=== PATIENT | female | born 1940 | race Caucasian/White ===

== ENCOUNTER 2020-08-13 11:06 | Inpatient (IN) ==
[2020-08-13] MEDS ORDERED: fentaNYL citrate 100 MCG/2 ML VIAL IV STA ×2 (12:41→15:00)
--- NOTE | 2020-08-13 12:47 | Emergency Department Note ---
Impression & Plan Pubic bone fracture, Elevated INR ED Provider Note Provider: Michael Harkins MD DATE OF SERVICE: 08/13/2020 CHIEF COMPLAINT: Right inguinal hip pain HISTORY OF PRESENT ILLNESS: Patient is a 79-year-old female history of DVT on Coumadin, interstitial lung disease on chronic prednisone, GERD, dextrocardia, and diastolic heart failure presenting today with family reporting over the past 4 days significant worsening of pain in her right hip, upper thigh, and right lower quadrant. States over the past 2 months she been having some intermittent pain of right hip. Was doing okay several weeks ago and was able to do some light gardening watering. States the next day roughly 2 to 3 weeks ago may experience worsening pain over the past 4 days significantly worsened. States she had significant pain in the right thigh around of the hip and into the right lower quadrant. Patient denies any trauma or falls. Patient states is worse with certain movements but is unable to get a position of comfort. Patient states urinary frequency but denies any hematuria. Denies any nausea or vomiting. Patient states been 2 days since her last bowel movement. Denies any saddle anesthesia or pain down her legs. Patient denies any numbness in the lower extremities. Patient states she has some chronic baseline back pain. Patient denies any chest pain at this time or worsening shortness of breath. Patient states he is under good round and lives at home by herself and was brought here by family for further evaluation. Tylenol and heat did not been helping with the pain at home. Patient evidently had an outpatient x-ray reportedly without acute findings they report. REVIEW OF SYSTEMS: A total of 10 review of systems was obtained and negative except as stated above in the HPI. PAST MEDICAL HISTORY: As noted above MEDICATIONS: Reviewed home medication list SOCIAL HISTORY: , lives at home by herself PHYSICAL EXAM: GENERAL: alert and oriented in no acute distress on stretcher Head: normocephalic and atraumatic EYES: No injection, discharge or icterus. NECK: Trachea midline. ENT: Mucous membranes pink and moist. LUNGS: Airway patent. No retractions. Breath sounds clear anteriorly HEART: Regular rate and rhythm. No chest wall tenderness ABDOMEN: Soft and non-tender, without guarding or rebound. SKIN: Acyanotic, warm, dry, without rashes EXTREMITIES: Without swelling, tenderness or deformity however pain with ROM of the right hip and some tenderness in the right inguinal region without significant bruising or erythema appreciated here. NEUROLOGICAL: No focal deficits. No aphasia. No facial droop or slurred speech.Sensation to gross touch normal in lower extremities CONTINUOUS CARDIAC MONITORING: was ordered and showed a heart rate of 50s to 80s bpm in normal sinus rhythm and sinus bradycardia Patient's laboratory studies and imaging reviewed. Differential includes Appendicitis, infections, diverticulitis, UTI, obstruction, mesenteric ischemia, aortic pathology, inflammatory bowel disease, renal colic, PUD, pancreatitis, biliary pathology, hernia, volvulus, constipation, bony injury as well as other pathologies. IMPRESSION/MEDICAL DECISION MAKING: While no significant trauma she is chronically been on steroids and imaging here appears to show a pelvic fracture of the right pubic bone. No significant hematoma noted per radiology report. INR is elevated at 9. She states decreased oral intake and this is likely contributing to the elevation. DVT does not appear to be recent. Given some oral vitamin K as there as has no significant evidence of acute bleeding but to help lower the INR to a therapeutic level. Leukocytosis of unclear etiology likely reactive versus related to some extra steroid she took yesterday. Urine without signs of infection. Other blood work is reassuring. Patient had some improved with fentanyl and was upset with the findings and the need for hospitalization. Daughter updated at bedside and understanding of the situation. She agrees the patient cannot go home at this time. Doubt this will be surgical by any means but patient's pain and this finding with the elevated INR a significant fall con cerns. Believe she will need some rehab and will discuss with the hospitalist for monitoring here overnight and placement. Patient's daughter was agreeable with this. DIAGNOSIS: pubic bone fracture, elevated INR DISPOSITION: Hospitalist will evaluate Family and patient updated at bedside. Past Med/Surg History Medical History (Updated 08/13/20 @ 20:08 by Michael Harkins M.D.) Age-related osteoporosis without current pathological fracture Asthma Benign hypertension with stage 3a chronic kidney disease Cataracts, bilateral Chronic anticoagulation Chronic cough Dextrocardia DVT (deep venous thrombosis) LLE Dyslipidemia Female stress incontinence ROMEO (generalized anxiety disorder) Gastroesophageal reflux disease without esophagitis Glaucoma H/O deep vein thrombophlebitis of lower extremity Hypertension, essential Hypothyroidism Impaired vision in both eyes Interstitial lung disease Migraine with aura and without status migrainosus, not intractable Mild aortic regurgitation Mild mitral regurgitation Moderate aortic stenosis Nonrheumatic aortic (valve) stenosis Osteopenia Primary open angle glaucoma of both eyes, 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 Urine incontinence Vitamin D deficiency Surgical History History of breast lump/mass excision History of surgical procedure on eye proper using laser Hx of cataract surgery Status post total abdominal hysterectomy Family History Mother Heart disease Diabetes Hypertension Father Heart disease Hypertension Brother Diabetes Heart disease Lung cancer Grandmother (Paternal) Heart disease Grandfather (Paternal) Heart disease Aunt Breast cancer Social History Smoking Status: Never smoker Second Hand Exposure: No; Hx Alcohol Use: No Hx Substance Use: No Preferred Language: Mohawk Communication Ability: Effective Visual Impairment: Limited 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 Technologist Required: No Beliefs That Will Affect Care: None marital status: / Current Living Situation: Alone current occupational status: retired Feels Safe at Home: Yes Safety Concerns: Feels Safe At This Time Assistive Devices: Denture - Upper and Glasses Allergies Allergies Allergy/AdvReac Type Severity Reaction Status Date / Time Penicillins Allergy Verified 08/13/20 12:05 prednisone Allergy Verified 08/13/20 12:05 Quinolones Allergy Verified 08/13/20 12:05 Home Meds Home Medications Medication Instructions Recorded Confirmed acetylcysteine 200 mg/mL (20 %) 3 ml INHALATION BID ml 08/05/20 08/13/20 solution albuterol sulfate 2.5 mg INHALATION Q4H PRN 08/05/20 08/13/20 alendronate 70 mg tablet 70 mg PO WK tab 08/05/20 08/13/20 azelastine 137 mcg (0.1 %) nasal 1 spray INTRANASAL BID 08/05/20 08/13/20 spray aerosol brinzolamide 1 %-brimonidine 0.2 % 1 drp OPHTHALMIC (EYE) TID 08/05/20 08/13/20 eye drops,suspension clotrimazole-betamethasone 1 1 applic TOPICAL BID 08/05/20 08/13/20 %-0.05 % topical cream conjugated estrogens 0.625 mg/gram 0.625 mg VAGINAL TID PRN g 08/05/20 08/13/20 vaginal cream etodolac 300 mg capsule 300 mg PO Q8H PRN 08/05/20 08/13/20 fexofenadine 180 mg tablet 180 mg PO DAILY PRN 08/05/20 08/13/20 fluorouracil 5 % topical cream 1 applic TOPICAL BID PRN 08/05/20 08/13/20 fluticasone propionate 220 2 puff INHALATION BID 08/05/20 08/13/20 mcg/actuation HFA aerosol inhaler gabapentin 300 mg capsule 300 mg PO DAILY 08/05/20 08/13/20 hydroxyzine HCl 10 mg tablet 10 mg PO QPM PRN tab 08/05/20 08/13/20 latanoprost 0.005 % eye drops 1 drp OPHTHALMIC (EYE) QPM 08/05/20 08/13/20 levothyroxine 50 mcg tablet 50 mcg PO DAILY 08/05/20 08/13/20 losartan 25 mg tablet 25 mg PO DAILY 08/05/20 08/13/20 montelukast 10 mg tablet 10 mg PO DAILY 08/05/20 08/13/20 omeprazole 40 mg capsule,delayed 40 mg PO DAILY 08/05/20 08/13/20 release polyethylene glycol 3350 17 gram 255 g PO DAILY PRN ea 08/05/20 08/13/20 oral powder packet sennosides 8.6 mg-docusate sodium 1 tab-cap PO QPM tab 08/05/20 08/13/20 50 mg tablet sertraline 25 mg tablet 25 mg PO DAILY 08/05/20 08/13/20 simvastatin 20 mg tablet 20 mg PO QPM 08/05/20 08/13/20 sumatriptan succinate 50 mg tablet 50 mg PO Q2H PRN 08/05/20 08/13/20 timolol 0.5 % eye drops 1 drp OPHTHALMIC (EYE) BID 08/05/20 08/13/20 warfarin 5 mg tablet 5 mg PO PM tab 08/07/20 08/13/20 acetaminophen [Tylenol Extra 100 mg PO Q6H PRN 08/13/20 08/13/20 Strength] Previous Rx's Medication Instructions Recorded diltiazem HCl 180 mg 180 mg PO DAILY #90 cap 06/25/21 capsule,extended release 24 hr Results & Data (ED) Vital Signs Vital Signs - 24 hr 08/13/20 11:12 08/13/20 11:30 08/13/20 12:01 Temperature 37 C Temperature Source Oral Pulse Rate 62 59 L 60 Pulse Rate from SpO2 Sensor 59 L 61 Pulse Rhythm Regular Pulse Strength Normal Respiratory Rate 15 14 18 Respiratory Effort / Characteristics Non-Labored Spontaneous Respiratory Depth Normal Respiratory Pattern Regular Blood Pressure 142/83 H 144/73 H 162/81 H Blood Pressure Mean 102 96 108 Blood Pressure Position Lying Pulse Oximetry 96 94 96 Oxygen Delivery Method Room Air Sepsis Recent Fever Within 48 Hours No Sepsis New/Unexplained Change in Mental Status N/A Sepsis Action Taken by Nursing No Action Required 08/13/20 12:30 08/13/20 13:00 08/13/20 13:30 Temperature Temperature Source Pulse Rate 74 63 60 Pulse Rate from SpO2 Sensor 73 64 59 L Pulse Rhythm Pulse Strength Respiratory Rate 14 15 16 Respiratory Effort / Characteristics Respiratory Depth Respiratory Pattern Blood Pressure 171/85 H 164/76 H 164/80 H Blood Pressure Mean 113 105 108 Blood Pressure Position Pulse Oximetry 98 94 94 Oxygen Delivery Method Sepsis Recent Fever Within 48 Hours Sepsis New/Unexplained Change in Mental Status Sepsis Action Taken by Nursing 08/13/20 14:00 08/13/20 14:30 08/13/20 14:50 Temperature Temperature Source Pulse Rate 56 L 61 58 L Pulse Rate from SpO2 Sensor 60 58 L Pulse Rhythm Pulse Strength Respiratory Rate 17 13 15 Respiratory Effort / Characteristics Respiratory Depth Respiratory Pattern Blood Pressure 163/91 H 164/68 H Blood Pressure Mean 115 100 Blood Pressure Position Pulse Oximetry 91 93 Oxygen Delivery Method Sepsis Recent Fever Within 48 Hours Sepsis New/Unexplained Change in Mental Status Sepsis Action Taken by Nursing 08/13/20 15:00 08/13/20 15:01 08/13/20 15:10 Temperature Temperature Source Pulse Rate 71 72 83 Pulse Rate from SpO2 Sensor 68 73 81 Pulse Rhythm Pulse Strength Respiratory Rate 19 18 17 Respiratory Effort / Characteristics Respiratory Depth Respiratory Pattern Blood Pressure 182/105 H Blood Pressure Mean 130 Blood Pressure Position Pulse Oximetry 97 97 97 Oxygen Delivery Method Sepsis Recent Fever Within 48 Hours Sepsis New/Unexplained Change in Mental Status Sepsis Action Taken by Nursing 08/13/20 15:20 08/13/20 15:30 08/13/20 15:40 Temperature Temperature Source Pulse Rate 72 58 L 65 Pulse Rate from SpO2 Sensor 72 63 64 Pulse Rhythm Pulse Strength Respiratory Rate 14 22 17 Respiratory Effort / Characteristics Respiratory Depth Respiratory Pattern Blood Pressure 182/86 H Blood Pressure Mean 118 Blood Pressure Position Pulse Oximetry 98 95 95 Oxygen Delivery Method Sepsis Recent Fever Within 48 Hours Sepsis New/Unexplained Change in Mental Status Sepsis Action Taken by Nursing 08/13/20 15:50 08/13/20 16:00 08/13/20 16:10 Temperature Temperature Source Pulse Rate 69 61 60 Pulse Rate from SpO2 Sensor 68 62 59 L Pulse Rhythm Pulse Strength Respiratory Rate 13 16 18 Respiratory Effort / Characteristics Respiratory Depth Respiratory Pattern Blood Pressure 154/74 H Blood Pressure Mean 100 Blood Pressure Position Pulse Oximetry 95 93 92 Oxygen Delivery Method Sepsis Recent Fever Within 48 Hours Sepsis New/Unexplained Change in Mental Status Sepsis Action Taken by Nursing 08/13/20 16:20 08/13/20 16:30 Temperature Temperature Source Pulse Rate 56 L 63 Pulse Rate from SpO2 Sensor 56 L 62 Pulse Rhythm Pulse Strength Respiratory Rate 16 16 Respiratory Effort / Characteristics Respiratory Depth Respiratory Pattern Blood Pressure 176/84 H Blood Pressure Mean 114 Blood Pressure Position Pulse Oximetry 95 94 Oxygen Delivery Method Sepsis Recent Fever Within 48 Hours Sepsis New/Unexplained Change in Mental Status Sepsis Action Taken by Nursing Laboratory Data Result diagrams: 08/13/20 12:50 08/13/20 12:50 Lab Results 08/13/20 08/13/20 08/13/20 Range/Units 12:50 12:50 12:50 WBC 15.93 H (4.8-10.8) K/uL RBC 4.35 (4.2-5.4) M/uL Hgb 13.4 (12.0-16.0) g/dL Hct 39.7 (37-47) % MCV 91.3 (80-100) fL MCH 30.8 (25-34) pg MCHC 33.8 (32-36) g/dL RDW Std Deviation 45.4 (36.4-46.3) fL RDW Coeff of Satya 13.6 (11.5-14.5) % Plt Count 574 H (130-400) K/uL MPV 8.6 (7.4-10.4) fL Immature Gran % (Auto) 0.5 % Neut % (Auto) 61.5 % Lymph % (Auto) 24.1 % [place] % (Auto) 13.2 % Eos % (Auto) 0.5 % Baso % (Auto) 0.2 % Neut # (Auto) 9.79 H (1.4-6.5) K/uL Lymph # (Auto) 3.84 H (1.2-3.4) K/uL [place] # (Auto) 2.11 H (0.11-0.59) K/uL Eos # (Auto) 0.08 (0-0.5) K/uL Baso # (Auto) 0.03 (0-0.2) K/uL Immature Gran # (Auto) 0.08 H (0.00-0.02) K/uL PT 76.7 H (9.0-12.0) Seconds INR 9.0 H* (0.9-1.1) APTT 60.1 H* (21.0-31.0) Seconds PTT Ratio 2.3 Sodium 137 (136-145) mmol/L Potassium 3.7 (3.5-5.1) mmol/L Chloride 103 (98-107) mmol/L Carbon Dioxide 29 (21-32) mmol/L Anion Gap 5.0 (3-11) BUN 17 (7-18) mg/dl Creatinine 1.00 (0.6-1.2) mg/dl Est Cr Clr Drug Dosing 39.9 ml/min Est GFR ( Amer) 62.9 ml/min Est GFR (Non-Af Amer) 54.3 ml/min BUN/Creatinine Ratio 17.0 (10-20) Glucose 80 (70-99) mg/dl Calcium 9.6 (8.5-10.1) mg/dl Total Bilirubin 0.5 (0.2-1) mg/dl AST 21 (15-37) U/L ALT 29 (12-78) U/L Alkaline Phosphatase 89 (45-117) U/L C-Reactive Protein (0-0.29) mg/dl Total Protein 7.6 (6.4-8.2) gm/dl Albumin 3.8 (3.4-5.0) gm/dl Globulin 3.8 (2.5-4.0) gm/dl Albumin/Globulin Ratio 1.0 (0.9-2) Lipase 111 (73-393) U/L Urine Color Urine Appearance (Clear) Urine pH (4.5-7.5) Ur Specific [place] (1.000-1.030) Urine Protein (Negative) Urine Glucose (UA) (Negative) Urine Ketones (Negative) Urine Blood (Negative) Urine Nitrite (Negative) Urine Bilirubin (Negative) Urine Urobilinogen (Negative) Ur Leukocyte Esterase (Negative) Urine WBC (Auto) (0-5) /hpf Urine RBC (Auto) (0-4) /hpf U Hyaline Cast (Auto) (0-5) /lpf U Epithel Cells (Auto) (0-5) /lpf Urine Bacteria (Auto) (Negative) 08/13/20 08/13/20 Range/Units 12:50 13:00 WBC (4.8-10.8) K/uL RBC (4.2-5.4) M/uL Hgb (12.0-16.0) g/dL Hct (37-47) % MCV (80-100) fL MCH (25-34) pg MCHC (32-36) g/dL RDW Std Deviation (36.4-46.3) fL RDW Coeff of Satya (11.5-14.5) % Plt Count (130-400) K/uL MPV (7.4-10.4) fL Immature Gran % (Auto) % Neut % (Auto) % Lymph % (Auto) % [place] % (Auto) % Eos % (Auto) % Baso % (Auto) % Neut # (Auto) (1.4-6.5) K/uL Lymph # (Auto) (1.2-3.4) K/uL [place] # (Auto) (0.11-0.59) K/uL Eos # (Auto) (0-0.5) K/uL Baso # (Auto) (0-0.2) K/uL Immature Gran # (Auto) (0.00-0.02) K/uL PT (9.0-12.0) Seconds INR (0.9-1.1) APTT (21.0-31.0) Seconds PTT Ratio Sodium (136-145) mmol/L Potassium (3.5-5.1) mmol/L Chloride (98-107) mmol/L Carbon Dioxide (21-32) mmol/L Anion Gap (3-11) BUN (7-18) mg/dl Creatinine (0.6-1.2) mg/dl Est Cr Clr Drug Dosing ml/min Est GFR ( Amer) ml/min Est GFR (Non-Af Amer) ml/min BUN/Creatinine Ratio (10-20) Glucose (70-99) mg/dl Calcium (8.5-10.1) mg/dl Total Bilirubin (0.2-1) mg/dl AST (15-37) U/L ALT (12-78) U/L Alkaline Phosphatase (45-117) U/L C-Reactive Protein 0.39 H (0-0.29) mg/dl Total Protein (6.4-8.2) gm/dl Albumin (3.4-5.0) gm/dl Globulin (2.5-4.0) gm/dl Albumin/Globulin Ratio (0.9-2) Lipase (73-393) U/L Urine Color Yellow Urine Appearance Clear (Clear) Urine pH 7.5 (4.5-7.5) Ur Specific [place] 1.009 (1.000-1.030) Urine Protein Negative (Negative) Urine Glucose (UA) Negative (Negative) Urine Ketones Negative (Negative) Urine Blood Negative (Negative) Urine Nitrite Negative (Negative) Urine Bilirubin Negative (Negative) Urine Urobilinogen Negative (Negative) Ur Leukocyte Esterase Trace H (Negative) Urine WBC (Auto) 1-5 (0-5) /hpf Urine RBC (Auto) 0-4 (0-4) /hpf U Hyaline Cast (Auto) 1-5 (0-5) /lpf U Epithel Cells (Auto) >30 H (0-5) /lpf Urine Bacteria (Auto) Negative (Negative) Administered Medications Acetylcysteine (Acetylcysteine 20% Inhal Soln 4ml Dispensed By Resp.) 3 ml INH BIDR JODI Stop: 09/12/20 19:44 Last Admin: 08/13/20 19:43 Dose: Not Given Documented by: [id number] Albuterol (Albuterol 0.083% Nebu Soln 3 Ml Vial) 2.5 mg INH Q4H PRN PRN Reason: sob/wheezing Stop: 09/12/20 18:37 Last Admin: 08/13/20 19:29 Dose: 2.5 mg Documented by: [id number] Discontinued Medications Fentanyl Citrate (Fentanyl Citrate 100 Mcg/2 Ml Vial) 25 mcg IV NOW STA Stop: 08/13/20 12:42 Last Admin: 08/13/20 12:56 Dose: 25 mcg Documented by: [id number] Fentanyl Citrate (Fentanyl Citrate 100 Mcg/2 Ml Vial) 25 mcg IV NOW STA Stop: 08/13/20 15:01 Last Admin: 08/13/20 15:29 Dose: 25 mcg Documented by: [id number] Ioversol (Optiray 320 100ml) 93 ml IV ONCE ONE Stop: 08/13/20 14:22 Last Admin: 08/13/20 14:21 Dose: 93 ml Documented by: [id number] Phytonadione (Phytonadione 5 Mg Tab) 5 mg PO NOW STA Stop: 08/13/20 14:56 Last Admin: 08/13/20 15:22 Dose: 5 mg Documented by: [id number] Imaging Data Radiologist's Impression: Abdomen/Pelvis CT 08/13/20 12:40 CT abd pelvis IV con only CLINICAL HISTORY: RLQ/thigh/hip pain COMPARISON STUDY: None. TECHNIQUE: The patient was scanned in a dynamic helical fashion during intravenous administration of 93 cc of Optiray 320 A dose lowering technique was utilized adhering to the principles of ALARA. CT DOSE: 543.81 mGycm FINDINGS: Lower chest: There is dextrocardia. There are basilar atelectatic changes. Liver: There is a left-sided liver consistent with situs inversus. There is a 6 mm hepatic cyst. Gallbladder: Unremarkable. Spleen: Spleen is right-sided. No splenic masses are visualized. Pancreas: Unremarkable. Adrenal glands: Unremarkable. Kidneys: There is symmetric renal cortical enhancement. The kidneys are normal in size without hydronephrosis. Bowel: There are no transition zones indicate bowel obstruction. There is no evidence of acute diverticulitis. There is no evidence of acute appendicitis. Peritoneum: There is no intraperitoneal free air or abdominal ascites. Vasculature: The abdominal aorta is normal in course and caliber. Adenopathy: None. Pelvic viscera: The patient is status post a prior hysterectomy. A tampon is visualized. Skeletal structures: There is a nondisplaced fracture the right symphysis pubis. IMPRESSION: 1. Situs inversus 2. No evidence of bowel obstruction. No evidence of free air 3. No evidence of acute diverticulitis. No evidence of acute appendicitis 4. Vaginal tampon 5. Nondisplaced fracture of the right symphysis pubis ACT 112: Negative or not required by law. Electronically signed by: Olegario Danielson M.D. 08/13/2020 2:[address] 08/13/20 12:40 CT hip RT wo con CLINICAL HISTORY: pain COMPARISON STUDY: No previous studies for comparison. TECHNIQUE: Axial images of the right hip were obtained without IV contrast. Sagittal and coronal reconstructions were viewed. Automated exposure control was utilized for the study. A dose lowering technique was utilized adhering to the principles of ALARA. FINDINGS: Note is made of an acute to subacute nondisplaced fracture of the medial right pubic bone extending to the symphysis pubis. No acute fracture within the right hip is noted. No suspicious osseous lesion is noted. Alignment of the right hip is anatomic. There is no CT evidence for avascular necrosis of the right femoral head. Mild right hip osteoporosis present. Abdomen and pelvis CT will be reported separately. There is no right inguinal lymphadenopathy. IMPRESSION: 1. Acute to subacute nondisplaced fracture of the medial right pubic bone which extends to the symphysis pubis. 2. No acute fracture or dislocation within the right hip. ACT 112: Negative or not required by law. Electronically signed by: Johnny Banerjee M.D. 08/13/2020 2:42 PM Discharge Plan Visit Data Chief Complaint: Hip Pain Stated Complaint: HIP PAIN ED Provider: Michael Harkins Discharge Problem: Pubic bone fracture, Elevated INR Patient Disposition: Admitted As Inpatient Discharge Instructions Interventions: ED Discharge Assessment Last Done: 08/13/20 17:19 Discharge Problem: Pubic bone fracture Qualifiers: Encounter type: initial encounter Sublocation of pubis: other portion of pubis Fracture type: closed Laterality: right Qualified Code(s): S32.591A - Other specified fracture of right pubis, initial encounter for closed fracture
[2020-08-13 13:00] LABS: Basophils # (auto) 0.03 K/uL (0-0.2); Basophils % (auto) 0.2 %; Eosinophils # (auto) 0.08 K/uL (0-0.5); Eosinophils % (auto) 0.5 %; Hematocrit (blood only) 39.7 % (37-47); Hemoglobin 13.4 g/dL (12.0-16.0); Immature Granulocytes # (auto) 0.08 K/uL (0.00-0.02); Immature Granulocytes % (auto) 0.5 %; Lymphocytes # (auto) 3.84 K/uL (1.2-3.4); Lymphocytes % (auto) 24.1 %; Mean Corpuscular Hemoglobin 30.8 pg (25-34); Mean Corpuscular Hgb Conc 33.8 g/dL (32-36); Mean Corpuscular Volume 91.3 fL (80-100); Mean Platelet Volume 8.6 fL (7.4-10.4); Monocytes # (auto) 2.11 K/uL (0.11-0.59); Monocytes % (auto) 13.2 %; Neutrophils # (auto) 9.79 K/uL (1.4-6.5); Neutrophils % (auto) 61.5 %; Platelet Count 574 K/uL (130-400); RDW Coefficient of Variation 13.6 % (11.5-14.5); RDW Standard Deviation 45.4 fL (36.4-46.3); Red Blood Count 4.35 M/uL (4.2-5.4); White Blood Count 15.93 K/uL (4.8-10.8)
[2020-08-13 13:21] LABS: Appearance Urine Clear (Clear); Bacteria Urine Automated Negative (Negative); Bilirubin Urine Negative (Negative); Blood Urine Negative (Negative); Color Urine Yellow; Epithelial Cell Urine Auto >30 /lpf (0-5); Glucose Urine UA Negative (Negative); Ketones Urine Negative (Negative); Leukocyte Esterase Urine Trace (Negative); Nitrite Urine Negative (Negative); Protein Urine Negative (Negative); RBC Urine Automated 0-4 /hpf (0-4); Specific Gravity Urine 1.009 (1.000-1.030); Urobilinogen Urine Negative (Negative); pH Urine 7.5 (4.5-7.5)
[2020-08-13 13:24] LABS: Albumin Level 3.8 gm/dl (3.4-5.0); Calcium 9.6 mg/dl (8.5-10.1); Creatinine Clr Calc Pharmacy 39.9 ml/min; Est GFR (African American) 62.9 ml/min; Est GFR (Non-African American) 54.3 ml/min; Partial Thromboplastin Ratio 2.3; Potassium 3.7 mmol/L (3.5-5.1); Prothrombin Time 76.7 Seconds (9.0-12.0)
[2020-08-13 13:26] LABS: Bilirubin,Total 0.5 mg/dl (0.2-1); Globulin 3.8 gm/dl (2.5-4.0); Total Protein 7.6 gm/dl (6.4-8.2)
[2020-08-13 13:32] LABS: Partial Thromboplastin Time 60.1 Seconds (21.0-31.0)
[2020-08-13] MEDS ORDERED: OPTIRAY 320 100ml IV ONE (14:21)
--- NOTE | 2020-08-13 14:41 | CT Scan Report ---
CT abd pelvis IV con only CLINICAL HISTORY: RLQ/thigh/hip pain COMPARISON STUDY: None. TECHNIQUE: The patient was scanned in a dynamic helical fashion during intravenous administration of 93 cc of Optiray 320 A dose lowering technique was utilized adhering to the principles of ALARA. CT DOSE: 543.81 mGycm FINDINGS: Lower chest: There is dextrocardia. There are basilar atelectatic changes. Liver: There is a left-sided liver consistent with situs inversus. There is a 6 mm hepatic cyst. Gallbladder: Unremarkable. Spleen: Spleen is right-sided. No splenic masses are visualized. Pancreas: Unremarkable. Adrenal glands: Unremarkable. Kidneys: There is symmetric renal cortical enhancement. The kidneys are normal in size without hydron ephrosis. Bowel: There are no transition zones indicate bowel obstruction. There is no evidence of acute divert iculitis. There is no evidence of acute appendicitis. Peritoneum: There is no intraperitoneal free air or abdominal ascites. Vasculature: The abdominal aorta is normal in course and caliber. Adenopathy: None. Pelvic viscera: The patient is status post a prior hysterectomy. A tampon is visualized. Skeletal structures: There is a nondisplaced fracture the right symphysis pubis. IMPRESSION: 1. Situs inversus 2. No evidence of bowel obstruction. No evidence of free air 3. No evidence of acute diverticulitis. No evidence of acute appendicitis 4. Vaginal tampon 5. Nondisplaced fracture of the right symphysis pubis ACT 112: Negative or not required by law. Electronically signed by: Olegario Danielson M.D. 08/13/2020 2:39 PM
--- NOTE | 2020-08-13 14:43 | CT Scan Report ---
CT hip RT wo con CLINICAL HISTORY: pain COMPARISON STUDY: No previous studies for comparison. TECHNIQUE: Axial images of the right hip were obtained without IV contrast. Sagittal and coronal jose antonio nstructions were viewed. Automated exposure control was utilized for the study. A dose lowering tech nique was utilized adhering to the principles of ALARA. FINDINGS: Note is made of an acute to subacute nondisplaced fracture of the medial right pubic bone e xtending to the symphysis pubis. No acute fracture within the right hip is noted. No suspicious osseo us lesion is noted. Alignment of the right hip is anatomic. There is no CT evidence for avascular nec rosis of the right femoral head. Mild right hip osteoporosis present. Abdomen and pelvis CT will be r eported separately. There is no right inguinal lymphadenopathy. IMPRESSION: 1. Acute to subacute nondisplaced fracture of the medial right pubic bone which extends to the symphy sis pubis. 2. No acute fracture or dislocation within the right hip. ACT 112: Negative or not required by law. Electronically signed by: Johnny Banerjee M.D. 08/13/2020 2:42 PM
[2020-08-13] MEDS ORDERED: PHYTONADIONE 5 MG TAB PO STA (14:55)
--- NOTE | 2020-08-13 16:09 | History & Physical Report ---
Date of Service August 13, 2020 Assessment & Plan (1) Pubic bone fracture: Osteoporotic fracture that occurred with minimal exertion while gardening approximately 2 weeks ago but pain much worse in the last 4 days Inability to ambulate at this point secondary to severe pain No hematoma noted on imaging despite INR of 9.0 on admission WBC count elevated as she tried taking 2 tablets of prednisone yesterday for pain, but do not suspect infection -Admit to medical/surgical floor -PT/OT consultations and will likely need rehab placement -Pain control with Tylenol, oxycodone as needed, and IV morphine as needed severe breakthrough pain -Orthopedics consultation requested -Has not been taking her medications for osteoporosis as an outpatient-consider Prolia versus Forteo as an outpatient (2) Chronic anticoagulation: Takes this for history of recurrent DVT INR 9.0 upon admission INR is likely elevated secondary to recent prednisone use as well as very poor p.o. intake over the last 4 days Fortunately, she has no bleeding from anywhere including from her pubic bone fracture -Was given vitamin K 5 mg p.o. x1 in the ER -Reassess INR later this evening and again in the morning -Hold home Coumadin (3) Dextrocardia: Noted Follows with cardiology (4) Dyslipidemia: Continue simvastatin (5) Female stress incontinence: Uses pads and also uses tampons-tampon was noted on CT of the abdomen/pelvis -She was asked to remove this tampon as it has been in since the night prior to admission (6) Gastroesophageal reflux disease without esophagitis: No acute issues Continue PPI (7) Hypertension, essential: Blood pressures are elevated in the ER in the 170s systolic Continue home diltiazem which was recently started by cardiology -She is no longer taking torsemide and this was removed from the home medication list -Continue home losartan (8) Hypothyroidism: Check TSH in the morning Continue home levothyroxine (9) Interstitial lung disease: Follows with [facility] pulmonology in [place] Recently completed a 5-month course of prednisone about 1 month ago but did take an extra dose yesterday for her hip pain Cough is much improved Uses inhalers as needed No hypoxia Continue Singulair, acetylcysteine twice daily, azelastine nasal spray, fexofenadine as needed And inhaled fluticasone (10) Moderate aortic stenosis: Follows with cardiology (11) Vitamin D deficiency: Has not been taking her vitamin D for the last several months Continue upon discharge (12) Urge incontinence: As above Uses pads and tampons for urinary incontinence-asked her to remove her tampon that is currently in place Hold home vaginal estrogen cream while inpatient (13) ROMEO (generalized anxiety disorder): No acute issues Continue home sertraline, hydroxyzine as needed (14) Benign hypertension with stage 3a chronic kidney disease: Renal function stable -Avoid nephrotoxins -renally dose meds when appropriate -follow BMP (15) Osteopenia: Has not been taking home Fosamax or vitamin D as above Consider Prolia or Forteo as an outpatient given fracture (16) DVT prophylaxis: INR is 9.0, takes Coumadin Holding Coumadin as above Disposition-admit to medical/surgical floor PT/OT consults Case management will need to assist with rehab placement most likely Full code Patient reports her daughter 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 History of Present Illness Chief Complaint: Right hip pain Primary Care Provider: Evita Medina, This patient is a 79-year-old female with a history of suspected interstitial lung disease with cough variant asthma and simple chronic bronchitis recently on 4 to 5 months of prednisone therapy, osteoporosis, recurrent DVT on Coumadin, HTN, CKD stage III, dextrocardia, situs inversus abdominalis, generalized anxiety disorder, GERD, migraine headaches, moderate aortic valve stenosis, mild aortic insufficiency, mild mitral regurgitation, heart failure with preserved ejection fraction, bladder incontinence, and hyperlipidemia who presents to the ER with 4 days of significant worsening of pain in the right hip that is been ongoing for approximately 2 to 3 weeks. Pain is also in the upper thigh and right lower quadrant of the abdomen. She reports that several weeks ago she was doing some light gardening while carrying a water bucket and by the next day started experiencing pain in this area which was mild until it worsened the last 4 days. She denies any trauma or falls. Denies any saddle anesthesia or pain down her legs, no numbness in the lower extremities or weakness. She does have worsening of pain with certain movements of the right lower extremity. Tylenol and heat have not been helping with the pain. She had an outpatient x-ray of the right hip which was reportedly normal last week. She reports the pain was so bad that she was unable to get out of bed all last night and finally called her children for help this morning. She was brought in by EMS. In the ER, she was found to have a right medial pubic bone acute to subacute nondisplaced fracture which extends to the pubic symphysis. No fracture or dislocation right hip. She was also noted to have an INR of 9.0. A tampon was also noted in the vagina on CT imaging. She was given p.o. vitamin K 5 mg x 1 in the ER, as well as 2 doses of IV fentanyl. She will be admitted for pelvic fracture for pain control, evaluation for rehab placement, as well as treatment of her supratherapeutic INR. Allergies Allergy/AdvReac Type Severity Reaction Status Date / Time Penicillins Allergy Verified 08/13/20 12:05 prednisone Allergy Verified 08/13/20 12:05 Quinolones Allergy Verified 08/13/20 12:05 Home Medications Medication Instructions Recorded Confirmed Type acetylcysteine 200 mg/mL (20 %) 3 ml INHALATION BID ml 08/05/20 08/13/20 History solution albuterol sulfate 2.5 mg INHALATION Q4H PRN 08/05/20 08/13/20 History alendronate 70 mg tablet 70 mg PO WK tab 08/05/20 08/13/20 History azelastine 137 mcg (0.1 %) nasal 1 spray INTRANASAL BID 08/05/20 08/13/20 History spray aerosol brinzolamide 1 %-brimonidine 0.2 % 1 drp OPHTHALMIC (EYE) TID 08/05/20 08/13/20 History eye drops,suspension clotrimazole-betamethasone 1 1 applic TOPICAL BID 08/05/20 08/13/20 History %-0.05 % topical cream conjugated estrogens 0.625 mg/gram 0.625 mg VAGINAL TID PRN g 08/05/20 08/13/20 History vaginal cream etodolac 300 mg capsule 300 mg PO Q8H PRN 08/05/20 08/13/20 History fexofenadine 180 mg tablet 180 mg PO DAILY PRN 08/05/20 08/13/20 History fluorouracil 5 % topical cream 1 applic TOPICAL BID PRN 08/05/20 08/13/20 History fluticasone propionate 220 2 puff INHALATION BID 08/05/20 08/13/20 History mcg/actuation HFA aerosol inhaler gabapentin 300 mg capsule 300 mg PO DAILY 08/05/20 08/13/20 History hydroxyzine HCl 10 mg tablet 10 mg PO QPM PRN tab 08/05/20 08/13/20 History latanoprost 0.005 % eye drops 1 drp OPHTHALMIC (EYE) QPM 08/05/20 08/13/20 History levothyroxine 50 mcg tablet 50 mcg PO DAILY 08/05/20 08/13/20 History losartan 25 mg tablet 25 mg PO DAILY 08/05/20 08/13/20 History montelukast 10 mg tablet 10 mg PO DAILY 08/05/20 08/13/20 History omeprazole 40 mg capsule,delayed 40 mg PO DAILY 08/05/20 08/13/20 History release polyethylene glycol 3350 17 gram 255 g PO DAILY PRN ea 08/05/20 08/13/20 History oral powder packet sennosides 8.6 mg-docusate sodium 1 tab-cap PO QPM tab 08/05/20 08/13/20 History 50 mg tablet sertraline 25 mg tablet 25 mg PO DAILY 08/05/20 08/13/20 History simvastatin 20 mg tablet 20 mg PO QPM 08/05/20 08/13/20 History sumatriptan succinate 50 mg tablet 50 mg PO Q2H PRN 08/05/20 08/13/20 History timolol 0.5 % eye drops 1 drp OPHTHALMIC (EYE) BID 08/05/20 08/13/20 History diltiazem HCl 180 mg 180 mg PO DAILY #90 cap 08/07/20 08/13/20 Rx capsule,extended release 24 hr warfarin 5 mg tablet 5 mg PO PM tab 08/07/20 08/13/20 History acetaminophen [Tylenol Extra 100 mg PO Q6H PRN 08/13/20 08/13/20 History Strength] Past Med/Surg History Medical History (Updated 08/13/20 @ 17:16 by Corrine Oliva MD) Age-related osteoporosis without current pathological fracture Asthma Benign hypertension with stage 3a chronic kidney disease Cataracts, bilateral Chronic anticoagulation Chronic cough Dextrocardia DVT (deep venous thrombosis) LLE Dyslipidemia Female stress incontinence ROMEO (generalized anxiety disorder) Gastroesophageal reflux disease without esophagitis Glaucoma H/O deep vein thrombophlebitis of lower extremity Hypertension, essential Hypothyroidism Impaired vision in both eyes Interstitial lung disease Migraine with aura and without status migrainosus, not intractable Mild aortic regurgitation Mild mitral regurgitation Moderate aortic stenosis Nonrheumatic aortic (valve) stenosis Osteopenia Primary open angle glaucoma of both eyes, 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 Urine incontinence Vitamin D deficiency Surgical History History of breast lump/mass excision History of surgical procedure on eye proper using laser Hx of cataract surgery Status post total abdominal hysterectomy Family History Mother Heart disease Diabetes Hypertension Father Heart disease Hypertension Brother Diabetes Heart disease Lung cancer Grandmother (Paternal) Heart disease Grandfather (Paternal) Heart disease Aunt Breast cancer Social History Smoking Status: Never smoker Hx Alcohol Use: No Preferred Language: Nepali Communication Ability: Effective 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 No chest pain or abdominal pain, no nausea or vomiting. She has had very poor appetite the last few days due to the pain. No bowel movement in 2 days Denies any hematochezia or hematemesis, no bright red blood per rectum or melena, no vaginal bleeding or hematuria. She does report urinary incontinence for which she uses pads as well as daily tampons. Physical Exam Constitutional: WD/WN, vitals as above Eyes: PERRL, conjunctivae normal, anicteric sclerae ENMT: external ear and nose normal, oropharynx normal Neck: trachea midline, no thyromegaly Respiratory: normal respiratory effort Auscultation: + wheezes (Very faint upper respiratory tract expiratory wheezes); no rales and no rhonchi Cardiovascular: Rate/Rhythm: regular rate and regular rhythm Heart Sounds: + murmur (3/6 systolic murmur at the left upper sternal border) Extremities: no calf tenderness and no edema Heart sounds on the right side of the chest Chest (Breasts): Chest: normal inspection of chest Gastrointestinal (Abdomen): normal bowel sounds, soft, nontender, no hepatosplenomegaly Musculoskeletal: Extremities: extremities normal to inspection; no cyanosis a nd no clubbing Positive pain with active range of motion of the right hip and with logroll of the right lower extremity Sensation intact to bilateral lower extremities, motor intact throughout bilateral lower extremities but diminished with hip flexion due to pain Skin: no rashes, warm and dry Neurologic: moves all extremities and awake; no focal motor deficits Psychiatric: A+Ox3, euthymic affect Lymphatic: no lymphedema Results & Data Results & Data ([facility]) Vital Signs (Past 12 Hours) Vital Signs Temp Pulse Resp BP Pulse Ox 08/13/20 14:30 61 13 164/68 H 91 08/13/20 14:00 56 L 17 163/91 H 08/13/20 13:30 60 16 164/80 H 94 08/13/20 13:00 63 15 164/76 H 94 08/13/20 12:30 74 14 171/85 H 98 08/13/20 12:01 60 18 162/81 H 96 08/13/20 11:30 59 L 14 144/73 H 94 08/13/20 11:12 37 C 62 15 142/83 H 96 Laboratory Results 08/13/20 08/13/20 08/13/20 Range/Units Unknown Unknown 13:00 WBC (4.8-10.8) K/uL RBC (4.2-5.4) M/uL Hgb (12.0-16.0) g/dL Hct (37-47) % MCV (80-100) fL MCH (25-34) pg MCHC (32-36) g/dL RDW Std Deviation (36.4-46.3) fL RDW Coeff of Satya (11.5-14.5) % Plt Count (130-400) K/uL MPV (7.4-10.4) fL Immature Gran % (Auto) % Neut % (Auto) % Lymph % (Auto) % Maverick % (Auto) % Eos % (Auto) % Baso % (Auto) % Neut # (Auto) (1.4-6.5) K/uL Lymph # (Auto) (1.2-3.4) K/uL Ma[place]ick # (Auto) (0.11-0.59) K/uL Eos # (Auto) (0-0.5) K/uL Baso # (Auto) (0-0.2) K/uL Immature Gran # (Auto) (0.00-0.02) K/uL PT (9.0-12.0) Seconds INR (0.9-1.1) APTT (21.0-31.0) Seconds PTT Ratio Sodium (136-145) mmol/L Potassium (3.5-5.1) mmol/L Chloride (98-107) mmol/L Carbon Dioxide (21-32) mmol/L Anion Gap (3-11) BUN (7-18) mg/dl Creatinine (0.6-1.2) mg/dl Est Cr Clr Drug Dosing ml/min Est GFR ( Amer) ml/min Est GFR (Non-Af Amer) ml/min BUN/Creatinine Ratio (10-20) Glucose (70-99) mg/dl Calcium (8.5-10.1) mg/dl Total Bilirubin (0.2-1) mg/dl AST (15-37) U/L ALT (12-78) U/L Alkaline Phosphatase (45-117) U/L C-Reactive Protein (0-0.29) mg/dl Total Protein (6.4-8.2) gm/dl Albumin (3.4-5.0) gm/dl Globulin (2.5-4.0) gm/dl Albumin/Globulin Ratio (0.9-2) Lipase (73-393) U/L Urine Color Yellow Urine Appearance Clear (Clear) Urine pH 7.5 (4.5-7.5) Ur Specific [place] 1.009 (1.000-1.030) Urine Protein Negative (Negative) Urine Glucose (UA) Negative (Negative) Urine Ketones Negative (Negative) Urine Blood Negative (Negative) Urine Nitrite Negative (Negative) Urine Bilirubin Negative (Negative) Urine Urobilinogen Negative (Negative) Ur Leukocyte Esterase Trace H (Negative) Urine WBC (Auto) 1-5 (0-5) /hpf Urine RBC (Auto) 0-4 (0-4) /hpf U Hyaline Cast (Auto) 1-5 (0-5) /lpf U Epithel Cells (Auto) >30 H (0-5) /lpf Urine Bacteria (Auto) Negative (Negative) COVID-19 Eval Order Covid19 at [facility] SARS-CoV-2 (PCR) NEGATIVE (Negative) 08/13/20 08/13/20 08/13/20 Range/Units 12:50 12:50 12:50 WBC (4.8-10.8) K/uL RBC (4.2-5.4) M/uL Hgb (12.0-16.0) g/dL Hct (37-47) % MCV (80-100) fL MCH (25-34) pg MCHC (32-36) g/dL RDW Std Deviation (36.4-46.3) fL RDW Coeff of Satya (11.5-14.5) % Plt Count (130-400) K/uL MPV (7.4-10.4) fL Immature Gran % (Auto) % Neut % (Auto) % Lymph % (Auto) % Maverick % (Auto) % Eos % (Auto) % Baso % (Auto) % Neut # (Auto) (1.4-6.5) K/uL Lymph # (Auto) (1.2-3.4) K/uL [place]ick # (Auto) (0.11-0.59) K/uL Eos # (Auto) (0-0.5) K/uL Baso # (Auto) (0-0.2) K/uL Immature Gran # (Auto) (0.00-0.02) K/uL PT 76.7 H (9.0-12.0) Seconds INR 9.0 H* (0.9-1.1) APTT 60.1 H* (21.0-31.0) Seconds PTT Ratio 2.3 Sodium 137 (136-145) mmol/L Potassium 3.7 (3.5-5.1) mmol/L Chloride 103 (98-107) mmol/L Carbon Dioxide 29 (21-32) mmol/L Anion Gap 5.0 (3-11) BUN 17 (7-18) mg/dl Creatinine 1.00 (0.6-1.2) mg/dl Est Cr Clr Drug Dosing 39.9 ml/min Est GFR ( Amer) 62.9 ml/min Est GFR (Non-Af Amer) 54.3 ml/min BUN/Creatinine Ratio 17.0 (10-20) Glucose 80 (70-99) mg/dl Calcium 9.6 (8.5-10.1) mg/dl Total Bilirubin 0.5 (0.2-1) mg/dl AST 21 (15-37) U/L ALT 29 (12-78) U/L Alkaline Phosphatase 89 (45-117) U/L C-Reactive Protein 0.39 H (0-0.29) mg/dl Total Protein 7.6 (6.4-8.2) gm/dl Albumin 3.8 (3.4-5.0) gm/dl Globulin 3.8 (2.5-4.0) gm/dl Albumin/Globulin Ratio 1.0 (0.9-2) Lipase 111 (73-393) U/L Urine Color Urine Appearance (Clear) Urine pH (4.5-7.5) Ur Specific [place] (1.000-1.030) Urine Protein (Negative) Urine Glucose (UA) (Negative) Urine Ketones (Negative) Urine Blood (Negative) Urine Nitrite (Negative) Urine Bilirubin (Negative) Urine Urobilinogen (Negative) Ur Leukocyte Esterase (Negative) Urine WBC (Auto) (0-5) /hpf Urine RBC (Auto) (0-4) /hpf U Hyaline Cast (Auto) (0-5) /lpf U Epithel Cells (Auto) (0-5) /lpf Urine Bacteria (Auto) (Negative) COVID-19 Eval Order SARS-CoV-2 (PCR) (Negative) 08/13/20 Range/Units 12:50 WBC 15.93 H (4.8-10.8) K/uL RBC 4.35 (4.2-5.4) M/uL Hgb 13.4 (12.0-16.0) g/dL Hct 39.7 (37-47) % MCV 91.3 (80-100) fL MCH 30.8 (25-34) pg MCHC 33.8 (32-36) g/dL RDW Std Deviation 45.4 (36.4-46.3) fL RDW Coeff of Satya 13.6 (11.5-14.5) % Plt Count 574 H (130-400) K/uL MPV 8.6 (7.4-10.4) fL Immature Gran % (Auto) 0.5 % Neut % (Auto) 61.5 % Lymph % (Auto) 24.1 % Maverick % (Auto) 13.2 % Eos % (Auto) 0.5 % Baso % (Auto) 0.2 % Neut # (Auto) 9.79 H (1.4-6.5) K/uL Lymph # (Auto) 3.84 H (1.2-3.4) K/uL [place] # (Auto) 2.11 H (0.11-0.59) K/uL Eos # (Auto) 0.08 (0-0.5) K/uL Baso # (Auto) 0.03 (0-0.2) K/uL Immature Gran # (Auto) 0.08 H (0.00-0.02) K/uL PT (9.0-12.0) Seconds INR (0.9-1.1) APTT (21.0-31.0) Seconds PTT Ratio Sodium (136-145) mmol/L Potassium (3.5-5.1) mmol/L Chloride (98-107) mmol/L Carbon Dioxide (21-32) mmol/L Anion Gap (3-11) BUN (7-18) mg/dl Creatinine (0.6-1.2) mg/dl Est Cr Clr Drug Dosing ml/min Est GFR ( Amer) ml/min Est GFR (Non-Af Amer) ml/min BUN/Creatinine Ratio (10-20) Glucose (70-99) mg/dl Calcium (8.5-10.1) mg/dl Total Bilirubin (0.2-1) mg/dl AST (15-37) U/L ALT (12-78) U/L Alkaline Phosphatase (45-117) U/L C-Reactive Protein (0-0.29) mg/dl Total Protein (6.4-8.2) gm/dl Albumin (3.4-5.0) gm/dl Globulin (2.5-4.0) gm/dl Albumin/Globulin Ratio (0.9-2) Lipase (73-393) U/L Urine Color Urine Appearance (Clear) Urine pH (4.5-7.5) Ur Specific [place] (1.000-1.030) Urine Protein (Negative) Urine Glucose (UA) (Negative) Urine Ketones (Negative) Urine Blood (Negative) Urine Nitrite (Negative) Urine Bilirubin (Negative) Urine Urobilinogen (Negative) Ur Leukocyte Esterase (Negative) Urine WBC (Auto) (0-5) /hpf Urine RBC (Auto) (0-4) /hpf U Hyaline Cast (Auto) (0-5) /lpf U Epithel Cells (Auto) (0-5) /lpf Urine Bacteria (Auto) (Negative) COVID-19 Eval Order SARS-CoV-2 (PCR) (Negative) Diagnostic Findings Abdomen/Pelvis CT 08/13/20 12:40 CT abd pelvis IV con only CLINICAL HISTORY: RLQ/thigh/hip pain COMPARISON STUDY: None. TECHNIQUE: The patient was scanned in a dynamic helical fashion during intravenous administration of 93 cc of Optiray 320 A dose lowering technique was utilized adhering to the principles of ALARA. CT DOSE: 543.81 mGycm FINDINGS: Lower chest: There is dextrocardia. There are basilar atelectatic changes. Liver: There is a left-sided liver consistent with situs inversus. There is a 6 mm hepatic cyst. Gallbladder: Unremarkable. Spleen: Spleen is right-sided. No splenic masses are visualized. Pancreas: Unremarkable. Adrenal glands: Unremarkable. Kidneys: There is symmetric renal cortical enhancement. The kidneys are normal in size without hydronephrosis. Bowel: There are no transition zones indicate bowel obstruction. There is no evidence of acute diverticulitis. There is no evidence of acute appendicitis. Peritoneum: There is no intraperitoneal free air or abdominal ascites. Vasculature: The abdominal aorta is normal in course and caliber. Adenopathy: None. Pelvic viscera: The patient is status post a prior hysterectomy. A tampon is visualized. Skeletal structures: There is a nondisplaced fracture the right symphysis pubis. IMPRESSION: 1. Situs inversus 2. No evidence of bowel obstruction. No evidence of free air 3. No evidence of acute diverticulitis. No evidence of acute appendicitis 4. Vaginal tampon 5. Nondisplaced fracture of the right symphysis pubis ACT 112: Negative or not required by law. Electronically signed by: Olegario Danielson M.D. 08/13/2020 2:[address] 08/13/20 12:40 CT hip RT wo con CLINICAL HISTORY: pain COMPARISON STUDY: No previous studies for comparison. TECHNIQUE: Axial images of the right hip were obtained without IV contrast. Sagittal and coronal reconstructions were viewed. Automated exposure control was utilized for the study. A dose lowering technique was utilized adhering to the principles of ALARA. FINDINGS: Note is made of an acute to subacute nondisplaced fracture of the medial right pubic bone extending to the symphysis pubis. No acute fracture within the right hip is noted. No suspicious osseous lesion is noted. Alignment of the right hip is anatomic. There is no CT evidence for avascular necrosis of the right femoral head. Mild right hip osteoporosis present. Abdomen and pelvis CT will be reported separately. There is no right inguinal lymphadenopathy. IMPRESSION: 1. Acute to subacute nondisplaced fracture of the medial right pubic bone which extends to the symphysis pubis. 2. No acute fracture or dislocation within the right hip. ACT 112: Negative or not required by law. Electronically signed by: Johnny Banerjee M.D. 08/13/2020 2:42 PM Code Status & VTE Plan Code Status Full code, but does not want prolonged life support if in a vegetative state VTE Prophylaxis Plan VTE Prophylaxis will be ordered: Yes PG Care Time/CCT Total # of Minutes Spent Total Time Spent with Patient: Total time spent is greater than 50% in coordination of care (as documented) at patient's floor/unit and/or counseling patient: Coding Level of Care Code 04422 Initial Inpt Care Lvl 3 Diagnoses Pubic bone fracture S32.509A Chronic anticoagulation Z79.01 Dextrocardia Q24.0 Dyslipidemia E78.5 Female stress incontinence N39.3 Gastroesophageal reflux disease without esophagitis K21.9 Hypertension, essential I10 Hypothyroidism E03.9 Interstitial lung disease J84.9 Moderate aortic stenosis I35.0 Vitamin D deficiency E55.9 Urge incontinence N39.41 ROMEO (generalized anxiety disorder) F41.1 Benign hypertension with stage 3a chronic kidney disease I12.9; N18.31 Osteopenia M85.80 DVT prophylaxis Z29.9
[2020-08-13] MEDS ORDERED: MAGNESIUM HYDROXIDE SUSP 30 ML UDC PO PRN (18:38)
[2020-08-13] MEDS ORDERED: POLYETHYLENE (MIRALAX) 17 GM PACK PO PRN (18:38)
[2020-08-13] MEDS ORDERED: FEXOFENADINE HCL 180 MG TAB PO PRN (18:38)
[2020-08-13] MEDS ORDERED: MoRPHine SULFATE 2 MG/ML CARP IV PRN (18:38)
[2020-08-13] MEDS ORDERED: ALBUTEROL 0.083% NEBU SOLN 3 ML VIAL INH PRN (18:38)
[2020-08-13] MEDS ORDERED: ONDANSETRON INJ 2 MG/ML 2 ML VIAL IV PRN (18:38)
[2020-08-13] MEDS ORDERED: Nursing to Pharmacy Communication SCH (19:30)
[2020-08-13] MEDS: ACETYLCYSTEINE 20% INHAL SOLN 4ML ***DISPENSED BY RESP. INH SCH (19:43)
[2020-08-13] MEDS ORDERED: ACETYLCYSTEINE 20% INHAL SOLN 30ML INH SCH (20:00)
[2020-08-13] MEDS ORDERED: hydrALAZINE HCL 20 MG/ML VIAL IV ONE (20:02)
[2020-08-13 20:19] LABS: INR 6.5 (0.9-1.1)
[2020-08-13] MEDS: LOSARTAN POTASSIUM 25 MG TAB PO SCH (20:43)
[2020-08-13] MEDS: DOCUSATE SODIUM/SENNA 50/8.6MG TAB PO SCH (20:44)
[2020-08-13] MEDS: LATANOPROST 0.005% OP SOLN 2.5 ML BTL OP SCH (20:44)
[2020-08-13] MEDS: SIMVASTATIN 20 MG TAB PO SCH (20:45)
[2020-08-13] MEDS: TIMOLOL MALEATE 0.5% OP SOLN 5 ML BTL OP SCH ×2 (20:45→20:53)
[2020-08-13] MEDS: SUMAtriptan succinate 50 MG TAB PO PRN (21:44)
[2020-08-13] MEDS: BRINZOLAMIDE/BRIMONIDINE TART 119 DROPS/8 ML BTL OP SCH (21:56)
[2020-08-14] MEDS: oxyCODONE HCL IR 5 MG TAB (IMMEDIATE RELEASE) PO PRN ×3 (00:19→12:42)
[2020-08-14] MEDS: SUMAtriptan succinate 50 MG TAB PO PRN ×3 (04:36→22:08)
[2020-08-14] MEDS ORDERED: LEVOTHYROXINE SODIUM 50 MCG TABLET PO SCH (06:30)
[2020-08-14] MEDS: ACETYLCYSTEINE 20% INHAL SOLN 4ML ***DISPENSED BY RESP. INH SCH (07:06)
--- NOTE | 2020-08-14 07:58 | Hospitalist Progress Note ---
Date of Service August 14, 2020 Assessment & Plan (1) Pubic bone fracture: Osteoporotic fracture that occurred with minimal exertion while gardening approximately 2 weeks ago but pain much worse in the last 4 days Inability to ambulate at this point secondary to severe pain No hematoma noted on imaging despite INR of 9.0 on admission WBC count elevated but she did try prednisone x 2 tablets (previously had for her hx ILD) but trending down without abx, no fever Given 5mg Vit K for INR 9.0 with repeat 6.5 last evening and actually dropped to 1.3 today Orthopedics on consult -- non-operative, WBAT, rehab planned for discharge --> Can consider setting up follow up with Adry DAVIS for further treatment of her osteoporosis with Prolia vs Forteo...vs follow up with her PCP as she has not been taking her Vitamin D supplementation Pain control : Tylenol, Oxycodone as needed. Morphine IV for breakthrough -- currently controlled PT/OT evals -- recs for inpatient rehab. CM following and will discuss with patient about [facility]/referral Continue to monitor (2) Chronic anticoagulation: Takes this for history of recurrent DVT INR 9.0 upon admission and reversed with 5mg Vit K with repeat 6.5 as above Subtherapeutic on AM labs at 1.3 and started lovenox SQ No bleeding from anywhere or pubic bone fx thankfully INR in AM (3) Dextrocardia: Noted Follows with cardiology (4) Dyslipidemia: Continue simvastatin (5) Female stress incontinence: Uses pads and also uses tampons-tampon was noted on CT of the abdomen/pelvis -She was asked to remove this tampon as it has been in since the night prior to admission --> this was removed per patient and she is reliable historian (6) Gastroesophageal reflux disease without esophagitis: No acute issues Continue PPI (7) Hypertension, essential: Blood pressures are elevated in the ER in the 170s systolic Continue home diltiazem which was recently started by cardiology She is no longer taking torsemide and this was removed from the home medication list Continue home losartan BP controlled 139/79 Continue to monitor (8) Hypothyroidism: Check TSH in the morning --> elevated at 11 with normal FT4 0.95 Increasing her home levothyroxine from 50mcg daily to 75mcg daily and rec patient have repeat TFT in 4-6 weeks as outpatient Should help with her constipation as well (9) Interstitial lung disease: Follows with [facility] pulmonology in [place] Recently completed a 5-month course of prednisone about 1 month ago but did take an extra dose day 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 for her hip pain Cough is much improved -- none reported today Uses inhalers as needed No hypoxia Continue Singulair, acetylcysteine twice daily, azelastine nasal spray, fexofenadine as needed And inhaled fluticasone (10) Moderate aortic stenosis: Follows with cardiology (11) Vitamin D deficiency: Has not been taking her vitamin D for the last several months Encouraged adherence and continue upon discharge (12) Urge incontinence: As above Uses pads and tampons for urinary incontinence-asked her to remove her tampon that is currently in place which she reports has been done Hold home vaginal estrogen cream while inpatient (13) ROMEO (generalized anxiety disorder): No acute issues Continue home sertraline, hydroxyzine as needed (14) Benign hypertension with stage 3a chronic kidney disease: Renal function stable -Avoid nephrotoxins -renally dose meds when appropriate -follow BMP (15) Osteopenia: Has not been taking home Fosamax or vitamin D as above Consider Prolia or Forteo as an outpatient given fracture (16) DVT prophylaxis: INR is 9.0, takes Coumadin --> vit K reversal as above Lovenox started today, monitor INR in AM Dispo: continued inpatient stay PT/OT recs rehab --> CM following Patient reports her daughter So would be her healthcare power of divorce attorney Admission and Anticipated Discharge Date Admission Date: August 13, 2020 Subjective Patient evaluated this morning. Stated terrible migraine -- she has a history and these are similar back up her neck and to the front of her eyes. She did get a dose of her sumatriptan x 2 but will order dose of Compazine as she could be having rebound from pain medication as well as lidocaine patch to her neck as she typically uses Biofreeze. No f/c/cp/sob/abd pain/n or v. She did take out her tampon as used for incontinence. Seen by PA and non-operative WBAT and will have evals by PT/OT. Eval this afternoon with improvement of headache with the Compazine and lidocaine patch but she states she feels like she needs to get some rest and that will also help as she has not had much sleep in the past three days. Got up fairly easy with therapy but states continued discomfort to anterior R groin but less than days past. Boosted up in bed with aide as she was slumped down and also causing more discomfort which was improved with repositioning. Her son brought in biofreeze and a pillow that she uses to help with this as well. Questions/concerns addressed. Plans for rehab at discharge when bed available. Review of Systems Review of Systems: All systems reviewed & are unremarkable except as noted in HPI & below Physical Exam Constitutional: WD/WN, vitals as above Eyes: PERRL, conjunctivae normal, anicteric sclerae ENMT: external ear and nose normal, oropharynx normal Neck: trachea midline, no thyromegaly Respiratory: normal respiratory effort Auscultation: + wheezes (Very faint upper respiratory tract expiratory wheezes); no rales and no rhonchi Cardiovascular: Rate/Rhythm: regular rate and regular rhythm Heart Sounds: + murmur (3/6 systolic murmur at the left upper sternal border) Extremities: no calf tenderness and no edema Chest (Breasts): Chest: normal inspection of chest Gastrointestinal (Abdomen): normal bowel sounds, soft, nontender, no hepatosplenomegaly Musculoskeletal: Extremities: extremities normal to inspection; no cyanosis and no clubbing + pain with active ROM of RIGHT hip and with log roll of RLE, NVI decreased hip flexion due to increased pain in R hip strength 3/5 with flexion of the hip compared to 4/5 to LLE pulses palpable bilaterally calves non-tender to palpation Skin: no rashes, warm and dry Neurologic: moves all extremities and awake; no focal motor deficits Psychiatric: Orientation: alert and oriented x 3 Lymphatic: no lymphedema Results & Data Results & Data ([facility]) Vital Signs (Past 12 Hours) Vital Signs Temp Pulse Resp BP Pulse Ox Pulse Ox 08/14/20 07:22 36.7 C 68 16 155/81 H 92 08/13/20 23:14 36.7 C 60 16 124/72 93 08/13/20 20:37 156/105 H 08/13/20 20:10 97 Laboratory Results 08/13/20 08/13/20 08/13/20 Range/Units Unknown Unknown 19:18 WBC (4.8-10.8) K/uL RBC (4.2-5.4) M/uL Hgb (12.0-16.0) g/dL Hct (37-47) % MCV (80-100) fL MCH (25-34) pg MCHC (32-36) g/dL RDW Std Deviation (36.4-46.3) fL RDW Coeff of Satya (11.5-14.5) % Plt Count (130-400) K/uL MPV (7.4-10.4) fL Immature Gran % (Auto) % Neut % (Auto) % Lymph % (Auto) % [place] % (Auto) % Eos % (Auto) % Baso % (Auto) % Neut # (Auto) (1.4-6.5) K/uL Lymph # (Auto) (1.2-3.4) K/uL [place] # (Auto) (0.11-0.59) K/uL Eos # (Auto) (0-0.5) K/uL Baso # (Auto) (0-0.2) K/uL Immature Gran # (Auto) (0.00-0.02) K/uL PT 57.0 H (9.0-12.0) Seconds INR 6.5 H* (0.9-1.1) APTT (21.0-31.0) Seconds PTT Ratio Sodium (136-145) mmol/L Potassium (3.5-5.1) mmol/L Chloride (98-107) mmol/L Carbon Dioxide (21-32) mmol/L Anion Gap (3-11) BUN (7-18) mg/dl Creatinine (0.6-1.2) mg/dl Est Cr Clr Drug Dosing ml/min Est GFR ( Amer) ml/min Est GFR (Non-Af Amer) ml/min BUN/Creatinine Ratio (10-20) Glucose (70-99) mg/dl Calcium (8.5-10.1) mg/dl Total Bilirubin (0.2-1) mg/dl AST (15-37) U/L ALT (12-78) U/L Alkaline Phosphatase (45-117) U/L C-Reactive Protein (0-0.29) mg/dl Total Protein (6.4-8.2) gm/dl Albumin (3.4-5.0) gm/dl Globulin (2.5-4.0) gm/dl Albumin/Globulin Ratio (0.9-2) Lipase (73-393) U/L Urine Color Urine Appearance (Clear) Urine pH (4.5-7.5) Ur Specific [place] (1.000-1.030) Urine Protein (Negative) Urine Glucose (UA) (Negative) Urine Ketones (Negative) Urine Blood (Negative) Urine Nitrite (Negative) Urine Bilirubin (Negative) Urine Urobilinogen (Negative) Ur Leukocyte Esterase (Negative) Urine WBC (Auto) (0-5) /hpf Urine RBC (Auto) (0-4) /hpf U Hyaline Cast (Auto) (0-5) /lpf U Epithel Cells (Auto) (0-5) /lpf Urine Bacteria (Auto) (Negative) COVID-19 Eval Order Covid19 at [facility] SARS-CoV-2 (PCR) NEGATIVE (Negative) 08/13/20 08/13/20 08/13/20 Range/Units 13:00 12:50 12:50 WBC (4.8-10.8) K/uL RBC (4.2-5.4) M/uL Hgb (12.0-16.0) g/dL Hct (37-47) % MCV (80-100) fL MCH (25-34) pg MCHC (32-36) g/dL RDW Std Deviation (36.4-46.3) fL RDW Coeff of Satya (11.5-14.5) % Plt Count (130-400) K/uL MPV (7.4-10.4) fL Immature Gran % (Auto) % Neut % (Auto) % Lymph % (Auto) % [place] % (Auto) % Eos % (Auto) % Baso % (Auto) % Neut # (Auto) (1.4-6.5) K/uL Lymph # (Auto) (1.2-3.4) K/uL [place] # (Auto) (0.11-0.59) K/uL Eos # (Auto) (0-0.5) K/uL Baso # (Auto) (0-0.2) K/uL Immature Gran # (Auto) (0.00-0.02) K/uL PT (9.0-12.0) Seconds INR (0.9-1.1) APTT (21.0-31.0) Seconds PTT Ratio Sodium 137 (136-145) mmol/L Potassium 3.7 (3.5-5.1) mmol/L Chloride 103 (98-107) mmol/L Carbon Dioxide 29 (21-32) mmol/L Anion Gap 5.0 (3-11) BUN 17 (7-18) mg/dl Creatinine 1.00 (0.6-1.2) mg/dl Est Cr Clr Drug Dosing 39.9 ml/min Est GFR ( Amer) 62.9 ml/min Est GFR (Non-Af Amer) 54.3 ml/min BUN/Creatinine Ratio 17.0 (10-20) Glucose 80 (70-99) mg/dl Calcium 9.6 (8.5-10.1) mg/dl Total Bilirubin 0.5 (0.2-1) mg/dl AST 21 (15-37) U/L ALT 29 (12-78) U/L Alkaline Phosphatase 89 (45-117) U/L C-Reactive Protein 0.39 H (0-0.29) mg/dl Total Protein 7.6 (6.4-8.2) gm/dl Albumin 3.8 (3.4-5.0) gm/dl Globulin 3.8 (2.5-4.0) gm/dl Albumin/Globulin Ratio 1.0 (0.9-2) Lipase 111 (73-393) U/L Urine Color Yellow Urine Appearance Clear (Clear) Urine pH 7.5 (4.5-7.5) Ur Specific [place] 1.009 (1.000-1.030) Urine Protein Negative (Negative) Urine Glucose (UA) Negative (Negative) Urine Ketones Negative (Negative) Urine Blood Negative (Negative) Urine Nitrite Negative (Negative) Urine Bilirubin Negative (Negative) Urine Urobilinogen Negative (Negative) Ur Leukocyte Esterase Trace H (Negative) Urine WBC (Auto) 1-5 (0-5) /hpf Urine RBC (Auto) 0-4 (0-4) /hpf U Hyaline Cast (Auto) 1-5 (0-5) /lpf U Epithel Cells (Auto) >30 H (0-5) /lpf Urine Bacteria (Auto) Negative (Negative) COVID-19 Eval Order SARS-CoV-2 (PCR) (Negative) 08/13/20 08/13/20 Range/Units 12:50 12:50 WBC 15.93 H (4.8-10.8) K/uL RBC 4.35 (4.2-5.4) M/uL Hgb 13.4 (12.0-16.0) g/dL Hct 39.7 (37-47) % MCV 91.3 (80-100) fL MCH 30.8 (25-34) pg MCHC 33.8 (32-36) g/dL RDW Std Deviation 45.4 (36.4-46.3) fL RDW Coeff of Satya 13.6 (11.5-14.5) % Plt Count 574 H (130-400) K/uL MPV 8.6 (7.4-10.4) fL Immature Gran % (Auto) 0.5 % Neut % (Auto) 61.5 % Lymph % (Auto) 24.1 % [place] % (Auto) 13.2 % Eos % (Auto) 0.5 % Baso % (Auto) 0.2 % Neut # (Auto) 9.79 H (1.4-6.5) K/uL Lymph # (Auto) 3.84 H (1.2-3.4) K/uL [place] # (Auto) 2.11 H (0.11-0.59) K/uL Eos # (Auto) 0.08 (0-0.5) K/uL Baso # (Auto) 0.03 (0-0.2) K/uL Immature Gran # (Auto) 0.08 H (0.00-0.02) K/uL PT 76.7 H (9.0-12.0) Seconds INR 9.0 H* (0.9-1.1) APTT 60.1 H* (21.0-31.0) Seconds PTT Ratio 2.3 Sodium (136-145) mmol/L Potassium (3.5-5.1) mmol/L Chloride (98-107) mmol/L Carbon Dioxide (21-32) mmol/L Anion Gap (3-11) BUN (7-18) mg/dl Creatinine (0.6-1.2) mg/dl Est Cr Clr Drug Dosing ml/min Est GFR ( Amer) ml/min Est GFR (Non-Af Amer) ml/min BUN/Creatinine Ratio (10-20) Glucose (70-99) mg/dl Calcium (8.5-10.1) mg/dl Total Bilirubin (0.2-1) mg/dl AST (15-37) U/L ALT (12-78) U/L Alkaline Phosphatase (45-117) U/L C-Reactive Protein (0-0.29) mg/dl Total Protein (6.4-8.2) gm/dl Albumin (3.4-5.0) gm/dl Globulin (2.5-4.0) gm/dl Albumin/Globulin Ratio (0.9-2) Lipase (73-393) U/L Urine Color Urine Appearance (Clear) Urine pH (4.5-7.5) Ur Specific [place] (1.000-1.030) Urine Protein (Negative) Urine Glucose (UA) (Negative) Urine Ketones (Negative) Urine Blood (Negative) Urine Nitrite (Negative) Urine Bilirubin (Negative) Urine Urobilinogen (Negative) Ur Leukocyte Esterase (Negative) Urine WBC (Auto) (0-5) /hpf Urine RBC (Auto) (0-4) /hpf U Hyaline Cast (Auto) (0-5) /lpf U Epithel Cells (Auto) (0-5) /lpf Urine Bacteria (Auto) (Negative) COVID-19 Eval Order SARS-CoV-2 (PCR) (Negative) PG Care Time/CCT Total # of Minutes Spent Total Time Spent with Patient: Total time spent is greater than 50% in coordination of care (as documented) at patient's floor/unit and/or counseling patient: Coding Level of Care Code 44299 Subseq Hosp Care Lvl 3 Diagnoses Pubic bone fracture S32.591A Encounter type: initial encounter Fracture type: closed Laterality: right Sublocation of pubis: other portion of pubis Chronic anticoagulation Z79.01 Dextrocardia Q24.0 Dyslipidemia E78.5 Female stress incontinence N39.3 Gastroesophageal reflux disease without esophagitis K21.9 Hypertension, essential I10 Hypothyroidism E03.9 Interstitial lung disease J84.9 Moderate aortic stenosis I35.0 Vitamin D deficiency E55.9 Urge incontinence N39.41 ROMEO (generalized anxiety disorder) F41.1 Benign hypertension with stage 3a chronic kidney disease I12.9; N18.31 Osteopenia M85.80 DVT prophylaxis Z29.9 (1) Pubic bone fracture Encounter type: initial encounter Fracture type: closed Laterality: right Sublocation of pubis: other portion of pubis Qualified Code(s): S32.591A - Other specified fracture of right pubis, initial encounter for closed fracture
[2020-08-14] MEDS: hydrOXYzine HCl 10 MG TAB PO PRN (08:25)
[2020-08-14] MEDS: GABAPENTIN 300 MG CAP PO SCH (08:25)
[2020-08-14] MEDS: SERTRALINE HCL 50 MG TABLET PO SCH (08:26)
[2020-08-14] MEDS: dilTIAZem HCL 180 MG CAPCR PO SCH (08:26)
[2020-08-14] MEDS: BRINZOLAMIDE/BRIMONIDINE TART 119 DROPS/8 ML BTL OP SCH ×3 (08:27→22:01)
[2020-08-14] MEDS: PANTOprazole 40 MG TAB PO SCH (08:27)
[2020-08-14] MEDS: FLUTICASONE FUROATE 200MCG 14 PUFFS/INHALER INH SCH (08:28)
[2020-08-14] MEDS: MONTELUKAST SODIUM 10 MG TABLET PO SCH (08:28)
[2020-08-14] MEDS: TIMOLOL MALEATE 0.5% OP SOLN 5 ML BTL OP SCH ×2 (08:28→22:01)
[2020-08-14 08:37] LABS: Basophils # (auto) 0.04 K/uL (0-0.2); Basophils % (auto) 0.3 %; Eosinophils # (auto) 0.15 K/uL (0-0.5); Eosinophils % (auto) 1.2 %; Hematocrit (blood only) 40.9 % (37-47); Hemoglobin 13.6 g/dL (12.0-16.0); Immature Granulocytes # (auto) 0.11 K/uL (0.00-0.02); Immature Granulocytes % (auto) 0.9 %; Lymphocytes # (auto) 2.72 K/uL (1.2-3.4); Lymphocytes % (auto) 21.4 %; Mean Corpuscular Hemoglobin 30.3 pg (25-34); Mean Corpuscular Hgb Conc 33.3 g/dL (32-36); Mean Corpuscular Volume 91.1 fL (80-100); Mean Platelet Volume 8.7 fL (7.4-10.4); Monocytes # (auto) 1.56 K/uL (0.11-0.59); Monocytes % (auto) 12.3 %; Neutrophils # (auto) 8.11 K/uL (1.4-6.5); Neutrophils % (auto) 63.9 %; Platelet Count 617 K/uL (130-400); RDW Coefficient of Variation 13.7 % (11.5-14.5); RDW Standard Deviation 45.5 fL (36.4-46.3); Red Blood Count 4.49 M/uL (4.2-5.4); White Blood Count 12.69 K/uL (4.8-10.8)
[2020-08-14 08:42] LABS: INR 1.3 (0.9-1.1); Prothrombin Time 13.1 Seconds (9.0-12.0)
[2020-08-14] MEDS: ACETAMINOPHEN 500 MG TAB PO PRN (08:45)
[2020-08-14 08:59] LABS: BUN Creatinine Ratio 19.7 (10-20); Calcium 9.5 mg/dl (8.5-10.1); Creatinine Clr Calc Pharmacy 36.3 ml/min; Est GFR (African American) 56.1 ml/min; Est GFR (Non-African American) 48.4 ml/min; Potassium 3.8 mmol/L (3.5-5.1)
[2020-08-14] MEDS ORDERED: TORSEMIDE 10 MG TAB PO SCH (09:00)
[2020-08-14] MEDS ORDERED: LOSARTAN POTASSIUM 25 MG TAB PO SCH (09:00)
--- NOTE | 2020-08-14 11:07 | Orthopedic Consultation ---
Date of Consultation August 14, 2020 Assessment & Plan (1) Pubic bone fracture: Pubic bone fracture with extension into symphysis pubis without a fall. X-rays will be reviewed with Dr. Aguirre but currently she can be weightbearing as tolerated with walker. Continue PT and OT protocols. Pain management as needed. Patient has been quite sedate over the last year secondary to Covid. She states that she does take medicine for her osteoporosis however she has not been taking it regularly. She states that she had a DEXA scan last year which did show obvious osteoporosis. She states that she has not been taking her vitamin D regularly as well. Consider getting her back to see her primary care physician to continue her osteoporosis treatment. Also discussed that if she wanted to, she could be scheduled to see SUSAN Reddy for further work-up and/or treatment of her osteoporosis. History of Present Illness Reason for Consultation: Right minimally displaced pubic bone fracture extending into symphysis pubis Attending Physician: Sang Serrano MD History of Present Illness Patient is a 79-year-old female with a history of suspected interstitial lung disease with cough variant asthma and simple chronic bronchitis recently on 4 to 5 months of prednisone therapy, osteoporosis, recurrent DVT on Coumadin, HTN, CKD stage III, dextrocardia, situs inversus abdominalis, generalized anxiety disorder, GERD, migraine headaches, moderate aortic valve stenosis, mild aortic insufficiency, mild mitral regurgitation, heart failure with preserved ejection fraction, bladder incontinence, and hyperlipidemia. The patient states that she was watering her plants approximately 2 weeks ago and was carrying a slightly heavy watering bucket. She states at one point she felt she had a groin pull in the right groin. She denies falling at any time. She denies any type of injury in the last 2 weeks. Over time the pain in her right groin continue to worsen. Within the last for 5 days prior to admission got to the point where she was having difficulty ambulating and getting around. She states that is mostly whenever she is trying to weight-bear on the right lower extremity. She was having pain in the groin and right hip. She states that she has had sciatica of the left hip in the past and this was a different type of pain. She eventually was brought into the emergency room. Abdominal CT along with pelvic CT was done and a right hip CT. This showed a pubic bone fracture minimally displaced with extension into the symphysis pubis. At the time of her emergency room visit, she was noted to have an INR of 9.0. She was admitted under the hospitalist service due to her ambulation dysfunction and her increased INR. We have been asked to see her for her fracture. Currently she is sitting up in a chair at the bedside. She states she has some discomfort while sitting in a chair but most of the time it is mainly with weightbearing and ambulation. Allergies Allergy/AdvReac Type Severity Reaction Status Date / Time Penicillins Allergy Verified 08/13/20 12:05 prednisone Allergy Verified 08/13/20 12:05 Quinolones Allergy Verified 08/13/20 12:05 Home Medications Medication Instructions Recorded Confirmed Type acetylcysteine 200 mg/mL (20 %) 3 ml INHALATION BID ml 08/05/20 08/13/20 History solution albuterol sulfate 2.5 mg INHALATION Q4H PRN 08/05/20 08/13/20 History alendronate 70 mg tablet 70 mg PO WK tab 08/05/20 08/13/20 History azelastine 137 mcg (0.1 %) nasal 1 spray INTRANASAL BID 08/05/20 08/13/20 History spray aerosol brinzolamide 1 %-brimonidine 0.2 % 1 drp OPHTHALMIC (EYE) TID 08/05/20 08/13/20 History eye drops,suspension clotrimazole-betamethasone 1 1 applic TOPICAL BID 08/05/20 08/13/20 History %-0.05 % topical cream conjugated estrogens 0.625 mg/gram 0.625 mg VAGINAL TID PRN g 08/05/20 08/13/20 History vaginal cream etodolac 300 mg capsule 300 mg PO Q8H PRN 08/05/20 08/13/20 History fexofenadine 180 mg tablet 180 mg PO DAILY PRN 08/05/20 08/13/20 History fluorouracil 5 % topical cream 1 applic TOPICAL BID PRN 08/05/20 08/13/20 History fluticasone propionate 220 2 puff INHALATION BID 08/05/20 08/13/20 History mcg/actuation HFA aerosol inhaler gabapentin 300 mg capsule 300 mg PO DAILY 08/05/20 08/13/20 History hydroxyzine HCl 10 mg tablet 10 mg PO QPM PRN tab 08/05/20 08/13/20 History latanoprost 0.005 % eye drops 1 drp OPHTHALMIC (EYE) QPM 08/05/20 08/13/20 History levothyroxine 50 mcg tablet 50 mcg PO DAILY 08/05/20 08/13/20 History losartan 25 mg tablet 25 mg PO DAILY 08/05/20 08/13/20 History montelukast 10 mg tablet 10 mg PO DAILY 08/05/20 08/13/20 History omeprazole 40 mg capsule,delayed 40 mg PO DAILY 08/05/20 08/13/20 History release polyethylene glycol 3350 17 gram 255 g PO DAILY PRN ea 08/05/20 08/13/20 History oral powder packet sennosides 8.6 mg-docusate sodium 1 tab-cap PO QPM tab 08/05/20 08/13/20 History 50 mg tablet sertraline 25 mg tablet 25 mg PO DAILY 08/05/20 08/13/20 History simvastatin 20 mg tablet 20 mg PO QPM 08/05/20 08/13/20 History sumatriptan succinate 50 mg tablet 50 mg PO Q2H PRN 08/05/20 08/13/20 History timolol 0.5 % eye drops 1 drp OPHTHALMIC (EYE) BID 08/05/20 08/13/20 History diltiazem HCl 180 mg 180 mg PO DAILY #90 cap 08/07/20 08/13/20 Rx capsule,extended release 24 hr warfarin 5 mg tablet 5 mg PO PM tab 08/07/20 08/13/20 History acetaminophen [Tylenol Extra 100 mg PO Q6H PRN 08/13/20 08/13/20 History Strength] Patient History Medical History Age-related osteoporosis without current pathological fracture Asthma Benign hypertension with stage 3a chronic kidney disease Cataracts, bilateral Chronic anticoagulation Chronic cough Dextrocardia DVT (deep venous thrombosis) LLE Dyslipidemia Female stress incontinence ROMEO (generalized anxiety disorder) Gastroesophageal reflux disease without esophagitis Glaucoma H/O deep vein thrombophlebitis of lower extremity Hypertension, essential Hypothyroidism Impaired vision in both eyes Interstitial lung disease Migraine with aura and without status migrainosus, not intractable Mild aortic regurgitation Mild mitral regurgitation Moderate aortic stenosis Nonrheumatic aortic (valve) stenosis Osteopenia Primary open angle glaucoma of both eyes, 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 Urine incontinence Vitamin D deficiency Surgical History History of breast lump/mass excision History of surgical procedure on eye proper using laser Hx of cataract surgery Status post total abdominal hysterectomy Family History Mother Heart disease Diabetes Hypertension Father Heart disease Hypertension Brother Diabetes Heart disease Lung cancer Grandmother (Paternal) Heart disease Grandfather (Paternal) Heart disease Aunt Breast cancer Social History Smoking Status: Never smoker Second Hand Exposure: No; Hx Alcohol Use: No Hx Substance Use: No Preferred Language: [place] Communication Ability: Effective Visual Impairment: Limited 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 She appears somewhat a little uncomfortable after just getting up and doing some ambulation. She is pleasant and cooperative and in no acute distress. Her leg lengths appear equal. On examination of the right lower extremity she has good range of motion of her right knee and ankle without discomfort. Can take her through some hip flexion without any apparent increase in her pain. Internal and external rotation does not appear to bother her. Abduction and adduction does give her a little bit of slight discomfort. Currently axial loading while sitting in the chair does not seem to bother her. She again relates most of her pain with weightbearing and ambulation. She denies any decrease sensation. Pulses are equal bilaterally of the lower extremities. She is able to hold a straight leg raise without difficulty of the right lower extremity. There is no gross motor or sensory loss seen at this time. Results & Data ([facility]) Vital Signs (Past 12 Hours) Vital Signs Temp Pulse Resp BP Pulse Ox 08/14/20 07:22 36.7 C 68 16 155/81 H 92 08/13/20 23:14 36.7 C 60 16 124/72 93 Diagnostic Findings Patient: JAMAL SAWYERAdmit Date: 08/13/20MR#: [id number] [facility]:[id number]: Date[facility] 1940[facility] Zip: [place] [id number]: [id number]: EDSex: FRoom/Bed:Att Phy:Diagnosis: HIP PAINPri Phy: Adam Evita Iván DOService Date: 08/13/20Fam Phy:Interpreting Phy: Johnny Banerjee MDAdmit Phy: Ordering Phy: Michael Harkins M.D. cc: ~ CT hip RT wo con CLINICAL HISTORY: pain COMPARISON STUDY: No previous studies for comparison. TECHNIQUE: Axial images of the right hip were obtained without IV contrast. Sagittal and coronal reconstructions were viewed. Automated exposure control was utilized for the study. A dose lowering technique was utilized adhering to the principles of ALARA. FINDINGS: Note is made of an acute to subacute nondisplaced fracture of the medial right pubic bone extending to the symphysis pubis. No acute fracture w ithin the right hip is noted. No suspicious osseous lesion is noted. Alignment of the right hip is anatomic. There is no CT evidence for avascular necrosis of the right femoral head. Mild right hip osteoporosis present. Abdomen and pelvis CT will be reported separately. There is no right inguinal lymphadenopathy. IMPRESSION: 1. Acute to subacute nondisplaced fracture of the medial right pubic bone which extends to the symphysis pubis. 2. No acute fracture or dislocation within the right hip. (1) Pubic bone fracture Encounter type: initial encounter Fracture type: closed Laterality: right Sublocation of pubis: other portion of pubis Qualified Code(s): S32.591A - Other specified fracture of right pubis, initial encounter for closed fracture
[2020-08-14] MEDS ORDERED: PROCHLORPERAZINE 5 MG in SYRINGE 4 ML IV ONE (12:15)
[2020-08-14] MEDS: ENOXAPARIN INJ 60 MG/0.6 ML SYR SQ SCH ×2 (12:30→22:04)
[2020-08-14] MEDS: LIDOCAINE 5% 1 PATCH TD SCH (12:31)
[2020-08-14] MEDS ORDERED: bisacodyL 5 MG TABEC PO PRN (16:30)
[2020-08-14] MEDS: POLYETHYLENE (MIRALAX) 17 GM PACK PO SCH (17:00)
[2020-08-14] MEDS ORDERED: PROCHLORPERAZINE 5 MG in SYRINGE 4 ML IV PRN (18:44)
[2020-08-14] MEDS: LATANOPROST 0.005% OP SOLN 2.5 ML BTL OP SCH (22:01)
[2020-08-14] MEDS: DOCUSATE SODIUM/SENNA 50/8.6MG TAB PO SCH (22:03)
[2020-08-14] MEDS: LOSARTAN POTASSIUM 25 MG TAB PO SCH (22:03)
[2020-08-14] MEDS: SIMVASTATIN 20 MG TAB PO SCH (22:04)
[2020-08-15] MEDS: SUMAtriptan succinate 50 MG TAB PO PRN (02:34)
[2020-08-15] MEDS: LEVOTHYROXINE SODIUM 75 MCG TABLET PO SCH (05:42)
[2020-08-15] MEDS: ACETAMINOPHEN 500 MG TAB PO PRN ×2 (05:47→20:24)
[2020-08-15] MEDS ORDERED: BACLOFEN 10 MG TAB PO ONE (06:30)
[2020-08-15 07:11] LABS: Basophils # (auto) 0.04 K/uL (0-0.2); Basophils % (auto) 0.4 %; Eosinophils # (auto) 0.35 K/uL (0-0.5); Eosinophils % (auto) 3.1 %; Hemoglobin 13.1 g/dL (12.0-16.0); Immature Granulocytes # (auto) 0.08 K/uL (0.00-0.02); Immature Granulocytes % (auto) 0.7 %; Lymphocytes # (auto) 2.71 K/uL (1.2-3.4); Lymphocytes % (auto) 23.9 %; Mean Corpuscular Hemoglobin 30.3 pg (25-34); Mean Corpuscular Hgb Conc 34.5 g/dL (32-36); Mean Platelet Volume 8.7 fL (7.4-10.4); Monocytes # (auto) 1.23 K/uL (0.11-0.59); Monocytes % (auto) 10.9 %; Neutrophils # (auto) 6.91 K/uL (1.4-6.5); Platelet Count 535 K/uL (130-400); RDW Coefficient of Variation 13.1 % (11.5-14.5); RDW Standard Deviation 42.7 fL (36.4-46.3); Red Blood Count 4.32 M/uL (4.2-5.4); White Blood Count 11.32 K/uL (4.8-10.8)
[2020-08-15 07:22] LABS: Prothrombin Time 10.6 Seconds (9.0-12.0)
[2020-08-15 07:42] LABS: Albumin Level 3.3 gm/dl (3.4-5.0); BUN Creatinine Ratio 21.2 (10-20); Calcium 9.4 mg/dl (8.5-10.1); Creatinine Clr Calc Pharmacy 36.6 ml/min; Est GFR (African American) 56.7 ml/min; Est GFR (Non-African American) 48.9 ml/min; Potassium 3.9 mmol/L (3.5-5.1)
[2020-08-15 07:45] LABS: Albumin Globulin Ratio 0.9 (0.9-2); Bilirubin,Total 0.8 mg/dl (0.2-1); Globulin 3.5 gm/dl (2.5-4.0); Total Protein 6.8 gm/dl (6.4-8.2)
[2020-08-15] MEDS: oxyCODONE HCL IR 5 MG TAB (IMMEDIATE RELEASE) PO PRN (07:48)
[2020-08-15] MEDS: BRINZOLAMIDE/BRIMONIDINE TART 119 DROPS/8 ML BTL OP SCH ×3 (08:45→20:04)
[2020-08-15] MEDS: MONTELUKAST SODIUM 10 MG TABLET PO SCH (08:47)
[2020-08-15] MEDS: PANTOprazole 40 MG TAB PO SCH (08:47)
[2020-08-15] MEDS: dilTIAZem HCL 180 MG CAPCR PO SCH (08:47)
[2020-08-15] MEDS: SERTRALINE HCL 50 MG TABLET PO SCH (08:47)
[2020-08-15] MEDS: GABAPENTIN 300 MG CAP PO SCH (08:48)
[2020-08-15] MEDS: LIDOCAINE 5% 1 PATCH TD SCH (08:49)
[2020-08-15] MEDS: TIMOLOL MALEATE 0.5% OP SOLN 5 ML BTL OP SCH ×2 (08:49→20:06)
[2020-08-15] MEDS: FLUTICASONE FUROATE 200MCG 14 PUFFS/INHALER INH SCH (08:49)
[2020-08-15] MEDS: POLYETHYLENE (MIRALAX) 17 GM PACK PO SCH (08:49)
--- NOTE | 2020-08-15 09:27 | Hospitalist Progress Note ---
Date of Service August 15, 2020 Assessment & Plan (1) Pubic bone fracture: Osteoporotic fracture that occurred with minimal exertion while gardening approximately 2 weeks ago but pain much worse in the last 4 days Inability to ambulate at this point secondary to severe pain No hematoma noted on imaging despite INR of 9.0 on admission WBC count elevated but she did try prednisone x 2 tablets (previously had for her hx ILD) but continues trending down without abx, no fever Orthopedics on consult -- non-operative, WBAT, rehab planned for discharge --> Can consider setting up follow up with Adry DAVIS for further treatment of her osteoporosis with Prolia vs Forteo...vs follow up with her PCP as she has not been taking her Vitamin D supplementation --> She is agreeable for follow up with Adry Abraham and will arrange at discharge Pain control : IMPROVEMENT IN PAIN TODAY, INCREASED AMBULATION WITH LESS DISCOMFORT Continue Tylenol, Oxycodone as needed. Baclofen given x 1 for migraine -- resolved. can continue prn for muscle spasms Voltaren gel effective (utilizes biofreeze [employer]) and can continue PT/OT evals -- recs for inpatient rehab. 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 for history of recurrent DVT Given 5mg Vit K for INR 9.0 INR 1.0 and on Lovenox 70 SC BID -- continue until INR therapeutic Resumed coumadin (did not get her dose last evening) No bleeding from anywhere or pubic bone fx thankfully Continue to monitor INRs (3) Dextrocardia: Noted Follows with cardiology (4) Dyslipidemia: Continue simvastatin (5) Female stress incontinence: Uses pads and also uses tampons-tampon was noted on CT of the abdomen/pelvis -She was asked to remove this tampon as it has been in since the night prior to admission --> this was removed per patient and she is reliable historian (6) Gastroesophageal reflux disease without esophagitis: No acute issues Continue PPI (7) Hypertension, essential: Blood pressures are elevated in the ER in the 170s systolic Continue home diltiazem which was recently started by cardiology She is no longer taking torsemide and this was removed from the home medication list Continue home losartan BP controlled 110/72 Continue to monitor (8) Hypothyroidism: Check TSH in the morning --> elevated at 11 with normal FT4 0.95 Increasing her home levothyroxine from 50mcg daily to 75mcg daily and rec patient have repeat TFT in 4-6 weeks as outpatient Should help with her constipation as well as other symptoms of fatigue, weight gain, etc --> Also likley contributing to her hyponatremia (9) Interstitial lung disease: Follows with [facility] pulmonology in [place] Recently completed a 5-month course of prednisone about 1 month ago but did take an extra dose day [employer] for her hip pain Cough is much improved -- none reported today Uses inhalers as needed No hypoxia Continue Singulair, acetylcysteine twice daily, azelastine nasal spray, fexofenadine as needed And inhaled fluticasone 96% on RA (10) Moderate aortic stenosis: Follows with cardiology (11) Vitamin D deficiency: Has not been taking her vitamin D for the last several months Encouraged adherence and continue upon discharge Follow up ortho clinic as above (12) Urge incontinence: As above Uses pads and tampons for urinary incontinence-asked her to remove her tampon that is currently in place which she reports has been done Hold home vaginal estrogen cream while inpatient (13) ROMEO (generalized anxiety disorder): No acute issues Continue home sertraline, hydroxyzine as needed (14) Benign hypertension with stage 3a chronic kidney disease: Renal function stable -Avoid nephrotoxins -renally dose meds when appropriate -follow BMP (15) Osteopenia: Has not been taking home Fosamax or vitamin D as above Consider Prolia or Forteo as an outpatient given fracture (16) DVT prophylaxis: INR is 9.0, takes Coumadin --> vit K reversal as above Lovenox, Coumadin and daily INRs Dispo: continued inpatient stay PT/OT recs rehab --> CM following and refs sent Patient reports her daughter So would be her healthcare power of sports attorney Granddaughter Renee to be updated tomorrow Admission and Anticipated Discharge Date Admission Date: August 13, 2020 Subjective Patient evaluated this morning around lunch. Feeling better. Migraine resolved. Pain improved.Eating lunch, increased appetite. Voltaren effective for pain control and she did get a dose of muscle relaxer this morning. Can utilize as ne eded for spasm as she notes she has had issues with this as well. Motivated to get back to taking care of her. She had a rough year taking care of her who passed and then all winter with cough and followed with Dr Juarez. She had some lightheadedness early this morning but nothing since. She notes she had not been drinking much water bc of need to urinate more frequently but discussed importance of keeping hydrated. She had been on meds in past for overactive bladder but they caused significant GI symptoms and resolved since she stopped those. She is hopeful to get back to taking care of her self at home after rehab stay., Discussed this may be through the weekend until a bed available but will check with CM. Discussed elevated TSH and increase in Synthroid to 75mcg daily. She does endorse needing to take 1/2hr before eating but states she had been taking this with her PPI. Discussed taking by itself prior to eating and without any other medications. She does endorse significant fatigue over past year, brittle hair, dry skin, weight gain ("heaviest I've been in my life", constipation, etc and discussed these can all be symptoms of undertreated hypothyroidism and she will need repeat tests outpatient in 4-6 weeks. Will update family hernesto Duran tomorrow with changes and for any questions, sooner if needed. Review of Systems Review of Systems: All systems reviewed & are unremarkable except as noted in HPI & below Physical Exam Constitutional: WD/WN, vitals as above Eyes: PERRL, conjunctivae normal, anicteric sclerae ENMT: external ear and nose normal, oropharynx normal Neck: trachea midline, no thyromegaly Respiratory: normal respiratory effort Auscultation: + wheezes (Very faint upper respiratory tract expiratory wheezes); no rales and no rhonchi Cardiovascular: Rate/Rhythm: regular rate and regular rhythm Heart Sounds: + murmur (3/6 systolic murmur at the left upper sternal border, also radiation to axi) Extremities: no calf tenderness and no edema Chest (Breasts): Chest: normal inspection of chest Gastrointestinal (Abdomen): normal bowel sounds, soft, nontender, no hepatosplenomegaly Musculoskeletal: Extremities: extremities normal to inspection; no cyanosis and no clubbing leg length equal calves non-tender minimal tenderness to deep palpation anterior groin, decreased discomfort with flexion and straight leg raise today. (States most pain when standing) NVI pulses palpable bilaterally Skin: no rashes, warm and dry Neurologic: moves all extremities and awake; no focal motor deficits Psychiatric: Orientation: alert and oriented x 3 Lymphatic: no lymphedema Results & Data Results & Data ([facility]) Vital Signs (Past 12 Hours) Vital Signs Temp Pulse Pulse Resp BP Pulse Ox Pulse Ox 08/14/20 21:20 97 08/14/20 19:22 36.3 C L 65 16 99/64 L 91 08/14/20 15:39 36.3 C L 59 L 16 139/79 92 Intake and Output 08/14/20 08/15/20 08/15/20 22:59 06:59 14:59 Intake Total 300 / 400 Output Total 25 / 250 225 / 250 Balance 275 / 150 -225 / 150 Intake: Oral 300 / 400 Output: Urine 25 / 250 225 / 250 Laboratory Results 08/15/20 08/15/20 08/15/20 Range/Units 06:55 06:55 06:55 WBC 11.32 H (4.8-10.8) K/uL RBC 4.32 (4.2-5.4) M/uL Hgb 13.1 (12.0-16.0) g/dL Hct 38.0 (37-47) % MCV 88.0 (80-100) fL MCH 30.3 (25-34) pg MCHC 34.5 (32-36) g/dL RDW Std Deviation 42.7 (36.4-46.3) fL RDW Coeff of Satya 13.1 (11.5-14.5) % Plt Count 535 H (130-400) K/uL MPV 8.7 (7.4-10.4) fL Immature Gran % (Auto) 0.7 % Neut % (Auto) 61.0 % Lymph % (Auto) 23.9 % Travis % (Auto) 10.9 % Eos % (Auto) 3.1 % Baso % (Auto) 0.4 % Neut # (Auto) 6.91 H (1.4-6.5) K/uL Lymph # (Auto) 2.71 (1.2-3.4) K/uL Travis # (Auto) 1.23 H (0.11-0.59) K/uL Eos # (Auto) 0.35 (0-0.5) K/uL Baso # (Auto) 0.04 (0-0.2) K/uL Immature Gran # (Auto) 0.08 H (0.00-0.02) K/uL PT 10.6 (9.0-12.0) Seconds INR 1.0 (0.9-1.1) Sodium 132 L (136-145) mmol/L Potassium 3.9 (3.5-5.1) mmol/L Chloride 99 (98-107) mmol/L Carbon Dioxide 26 (21-32) mmol/L Anion Gap 8.0 (3-11) BUN 23 H (7-18) mg/dl Creatinine 1.09 (0.6-1.2) mg/dl Est Cr Clr Drug Dosing 36.6 ml/min Est GFR ( Amer) 56.7 ml/min Est GFR (Non-Af Amer) 48.9 ml/min BUN/Creatinine Ratio 21.2 H (10-20) Glucose 87 (70-99) mg/dl Calcium 9.4 (8.5-10.1) mg/dl Total Bilirubin 0.8 (0.2-1) mg/dl AST 17 (15-37) U/L ALT 23 (12-78) U/L Alkaline Phosphatase 75 (45-117) U/L Total Protein 6.8 (6.4-8.2) gm/dl Albumin 3.3 L (3.4-5.0) gm/dl Globulin 3.5 (2.5-4.0) gm/dl Albumin/Globulin Ratio 0.9 (0.9-2) Free T4 (0.8-1.6) ng/dl 08/14/20 Range/Units 07:50 WBC (4.8-10.8) K/uL RBC (4.2-5.4) M/uL Hgb (12.0-16.0) g/dL Hct (37-47) % MCV (80-100) fL MCH (25-34) pg MCHC (32-36) g/dL RDW Std Deviation (36.4-46.3) fL RDW Coeff of Satya (11.5-14.5) % Plt Count (130-400) K/uL MPV (7.4-10.4) fL Immature Gran % (Auto) % Neut % (Auto) % Lymph % (Auto) % Travis % (Auto) % Eos % (Auto) % Baso % (Auto) % Neut # (Auto) (1.4-6.5) K/uL Lymph # (Auto) (1.2-3.4) K/uL Travis # (Auto) (0.11-0.59) K/uL Eos # (Auto) (0-0.5) K/uL Baso # (Auto) (0-0.2) K/uL Immature Gran # (Auto) (0.00-0.02) K/uL PT (9.0-12.0) Seconds INR (0.9-1.1) Sodium (136-145) mmol/L Potassium (3.5-5.1) mmol/L Chloride (98-107) mmol/L Carbon Dioxide (21-32) mmol/L Anion Gap (3-11) BUN (7-18) mg/dl Creatinine (0.6-1.2) mg/dl Est Cr Clr Drug Dosing ml/min Est GFR ( Amer) ml/min Est GFR (Non-Af Amer) ml/min BUN/Creatinine Ratio (10-20) Glucose (70-99) mg/dl Calcium (8.5-10.1) mg/dl Total Bilirubin (0.2-1) mg/dl AST (15-37) U/L ALT (12-78) U/L Alkaline Phosphatase (45-117) U/L Total Protein (6.4-8.2) gm/dl Albumin (3.4-5.0) gm/dl Globulin (2.5-4.0) gm/dl Albumin/Globulin Ratio (0.9-2) Free T4 0.95 (0.8-1.6) ng/dl PG Care Time/CCT Total # of Minutes Spent Total Time Spent with Patient: Total time spent is greater than 50% in coordination of care (as documented) at patient's floor/unit and/or counseling patient: Coding Level of Care Code 83934 Subseq Hosp Care Lvl 3 Diagnoses Pubic bone fracture S32.591A Encounter type: initial encounter Fracture type: closed Laterality: right Sublocation of pubis: other portion of pubis Chronic anticoagulation Z79.01 Dextrocardia Q24.0 Dyslipidemia E78.5 Female stress incontinence N39.3 Gastroesophageal reflux disease without esophagitis K21.9 Hypertension, essential I10 Hypothyroidism E03.9 Interstitial lung disease J84.9 Moderate aortic stenosis I35.0 Vitamin D deficiency E55.9 Urge incontinence N39.41 ROMEO (generalized anxiety disorder) F41.1 Benign hypertension with stage 3a chronic kidney disease I12.9; N18.31 Osteopenia M85.80 DVT prophylaxis Z29.9 (1) Pubic bone fracture Encounter type: initial encounter Fracture type: closed Laterality: right Sublocation of pubis: other portion of pubis Qualified Code(s): S32.591A - Other specified fracture of right pubis, initial encounter for closed fracture
[2020-08-15] MEDS ORDERED: SODIUM CHLORIDE 0.9% 500 ML IV SCH (09:30)
[2020-08-15] MEDS: ENOXAPARIN 80 MG/0.8 ML SYR SQ SCH ×2 (10:38→22:03)
[2020-08-15] MEDS: DICLOFENAC SOD 1% GEL 100 GM TUBE EXT SCH ×3 (12:34→20:07)
[2020-08-15] MEDS ORDERED: ARTIFICIAL TEARS OP PRN (13:42)
[2020-08-15] MEDS ORDERED: WARFARIN SOD 5 MG TAB PO ONE (17:47)
[2020-08-15] MEDS: DOCUSATE SODIUM/SENNA 50/8.6MG TAB PO SCH (20:04)
[2020-08-15] MEDS: LATANOPROST 0.005% OP SOLN 2.5 ML BTL OP SCH (20:05)
[2020-08-15] MEDS: LOSARTAN POTASSIUM 25 MG TAB PO SCH (20:05)
[2020-08-15] MEDS: SIMVASTATIN 20 MG TAB PO SCH (20:06)
[2020-08-15] MEDS: BACLOFEN 10 MG TAB PO PRN (20:10)
[2020-08-16] MEDS: BACLOFEN 10 MG TAB PO PRN ×2 (05:44→22:06)
[2020-08-16] MEDS: LEVOTHYROXINE SODIUM 75 MCG TABLET PO SCH (05:45)
[2020-08-16 07:16] LABS: Prothrombin Time 10.4 Seconds (9.0-12.0)
[2020-08-16 07:32] LABS: Hemoglobin 11.6 g/dL (12.0-16.0); Mean Corpuscular Hemoglobin 30.1 pg (25-34); Mean Corpuscular Hgb Conc 34.1 g/dL (32-36); Mean Corpuscular Volume 88.1 fL (80-100); Mean Platelet Volume 8.7 fL (7.4-10.4); Platelet Count 492 K/uL (130-400); RDW Coefficient of Variation 13.2 % (11.5-14.5); RDW Standard Deviation 42.5 fL (36.4-46.3); Red Blood Count 3.86 M/uL (4.2-5.4); White Blood Count 11.99 K/uL (4.8-10.8)
[2020-08-16 07:33] LABS: BUN Creatinine Ratio 25.1 (10-20); Creatinine Clr Calc Pharmacy 34.4 ml/min; Est GFR (African American) 52.6 ml/min; Est GFR (Non-African American) 45.4 ml/min
--- NOTE | 2020-08-16 08:25 | Hospitalist Progress Note ---
Date of Service August 16, 2020 Assessment & Plan (1) Pubic bone fracture: Osteoporotic fracture that occurred with minimal exertion while gardening approximately 2 weeks ago but pain much worse in the last 4 days Inability to ambulate at this point secondary to severe pain No hematoma noted on imaging despite INR of 9.0 on admission WBC count elevated but she did try prednisone x 2 tablets (previously had for her hx ILD) but continues trending down without abx, no fever Orthopedics on consult -- non-operative, WBAT, rehab planned for discharge --> Can consider setting up follow up with Adry DAVIS for further treatment of her osteoporosis with Prolia vs Forteo...vs follow up with her PCP as she has not been taking her Vitamin D supplementation --> She is agreeable for follow up with Adry Abraham and will arrange at discharge Pain control : IMPROVEMENT IN PAIN TODAY, INCREASED AMBULATION WITH LESS DISCOMFORT Continue Tylenol, Oxycodone as needed. Baclofen given x 1 for migraine -- resolved and controlled. can continue prn for muscle spasms Voltaren gel effective (utilizes biofreeze [employer]) and can continue at discharge Heating pad for at night PT/OT evals -- recs for inpatient rehab. CM following and [place] and looking into back-up options as well Continue to monitor (2) Chronic anticoagulation: Takes this for history of recurrent DVT Given 5mg Vit K for INR 9.0 INR 1.0 and on Lovenox increased to 70 SC BID -- continue until INR therapeutic Resumed coumadin 08/15 No bleeding from anywhere or pubic bone fx thankfully Continue to monitor INRs (3) Dextrocardia: Noted Follows with cardiology (4) Dyslipidemia: Continue simvastatin (5) Female stress incontinence: Uses pads and also uses tampons-tampon was noted on CT of the abdomen/pelvis -She was asked to remove this tampon as it has been in since the night prior to admission --> this was removed per patient and she is reliable historian (6) Gastroesophageal reflux disease without esophagitis: No acute issues Continue PPI (7) Hypertension, essential: Blood pressures are elevated in the ER in the 170s systolic Continue home diltiazem which was recently started by cardiology She is no longer taking torsemide and this was removed from the home medication list Continue home losartan BP controlled 133/74 Continue to monitor (8) Hypothyroidism: Check TSH in the morning --> elevated at 11 with normal FT4 0.95 Increasing her home levothyroxine from 50mcg daily to 75mcg daily and rec patient have repeat TFT in 4-6 weeks as outpatient Should help with her constipation as well as other symptoms of fatigue, weight gain, etc --> Also likley contributing to her hyponatremia (9) Interstitial lung disease: Follows with [facility] pulmonology in [place] Recently completed a 5-month course of prednisone about 1 month ago but did take an extra dose day [employer] for her hip pain Cough is much improved -- none reported today Uses inhalers as needed No hypoxia Continue Singulair, acetylcysteine twice daily, azelastine nasal spray, fexofenadine as needed And inhaled fluticasone 95% on RA (10) Moderate aortic stenosis: Follows with cardiology (11) Vitamin D deficiency: Has not been taking her vitamin D for the last several months Encouraged adherence and continue upon discharge Follow up ortho clinic as above (12) Urge incontinence: As above Uses pads and tampons for urinary incontinence-asked her to remove her tampon that is currently in place which she reports has been done Hold home vaginal estrogen cream while inpatient (13) ROMEO (generalized anxiety disorder): No acute issues Continue home sertraline, hydroxyzine as needed (14) Benign hypertension with stage 3a chronic kidney disease: Renal function stable -Avoid nephrotoxins -renally dose meds when appropriate -follow BMP (15) Osteopenia: Has not been taking home Fosamax or vitamin D as above Consider Prolia or Forteo as an outpatient given fracture (16) DVT prophylaxis: INR is 9.0, takes Coumadin --> vit K reversal as above Lovenox, Coumadin and daily INRs Dispo: continued inpatient stay PT/OT recs rehab --> CM following and refs sent Patient reports her daughter So would be her healthcare power of assistant county attorney Granddaughter Renee to be updated this afternoon after she is done at [facility]. Admission and Anticipated Discharge Date Admission Date: August 13, 2020 Subjective Patient evaluated this morning. Feeling well. Migraine controlled. Pain controlled. Moving around better. Does have pain with standing but this is also improved. No fever, chills, chest pain, shortness of breath, abdominal pain, nausea or vomiting. Eating better. Had large BM after miralax this morning. Will update granddaughter this afternoon. Review of Systems Review of Systems: All systems reviewed & are unremarkable except as noted in HPI & below Physical Exam Constitutional: WD/WN, vitals as above Eyes: PERRL, conjunctivae normal, anicteric sclerae ENMT: external ear and nose normal, oropharynx normal Neck: trachea midline, no thyromegaly Respiratory: normal respiratory effort; no cough and not tachypneic Auscultation: no rales, no rhonchi and no wheezes Cardiovascular: Rate/Rhythm: regular rate and regular rhythm Heart Sounds: + murmur (3/6 systolic murmur at the left upper sternal border, also radiation to axi) Extremities: no calf tenderness and no edema Chest (Breasts): Chest: normal inspection of chest Gastrointestinal (Abdomen): normal bowel sounds, soft, nontender, no hepatosplenomegaly Musculoskeletal: Extremities: extremities normal to inspection; no cyanosis and no clubbing Extremities: extremities normal to inspection; no cyanosis and no clubbing leg length equal calves non-tender minimal tenderness to deep palpation anterior groin, decreased discomfort with flexion and straight leg raise today. (States most pain when standing) NVI pulses palpable bilaterally Skin: no rashes, warm and dry Neurologic: moves all extremities and awake; no focal motor deficits Psychiatric: Orientation: alert and oriented x 3 Lymphatic: no lymphedema Results & Data Results & Data ([facility]) Vital Signs (Past 12 Hours) Vital Signs Temp Pulse Resp BP Pulse Ox Pulse Ox 08/16/20 07:42 36.7 C 57 L 16 133/74 95 08/16/20 00:32 36.3 C L 56 L 16 123/71 94 08/15/20 21:15 97 Laboratory Results 08/16/20 08/16/20 08/16/20 Range/Units 06:48 06:48 06:48 WBC 11.99 H (4.8-10.8) K/uL RBC 3.86 L (4.2-5.4) M/uL Hgb 11.6 L (12.0-16.0) g/dL Hct 34.0 L (37-47) % MCV 88.1 (80-100) fL MCH 30.1 (25-34) pg MCHC 34.1 (32-36) g/dL RDW Std Deviation 42.5 (36.4-46.3) fL RDW Coeff of Satya 13.2 (11.5-14.5) % Plt Count 492 H (130-400) K/uL MPV 8.7 (7.4-10.4) fL PT 10.4 (9.0-12.0) Seconds INR 1.0 (0.9-1.1) Sodium 130 L (136-145) mmol/L Potassium 4.0 (3.5-5.1) mmol/L Chloride 98 (98-107) mmol/L Carbon Dioxide 27 (21-32) mmol/L Anion Gap 5.0 (3-11) BUN 29 H (7-18) mg/dl Creatinine 1.16 (0.6-1.2) mg/dl Est Cr Clr Drug Dosing 34.4 ml/min Est GFR ( Amer) 52.6 ml/min Est GFR (Non-Af Amer) 45.4 ml/min BUN/Creatinine Ratio 25.1 H (10-20) Glucose 90 (70-99) mg/dl Osmolality (280-300) mOsm/kg Calcium 9.0 (8.5-10.1) mg/dl Cortisol AM Sample 08/15/20 08/15/20 Range/Units 09:34 09:30 WBC (4.8-10.8) K/uL RBC (4.2-5.4) M/uL Hgb (12.0-16.0) g/dL Hct (37-47) % MCV (80-100) fL MCH (25-34) pg MCHC (32-36) g/dL RDW Std Deviation (36.4-46.3) fL RDW Coeff of Satya (11.5-14.5) % Plt Count (130-400) K/uL MPV (7.4-10.4) fL PT (9.0-12.0) Seconds INR (0.9-1.1) Sodium (136-145) mmol/L Potassium (3.5-5.1) mmol/L Chloride (98-107) mmol/L Carbon Dioxide (21-32) mmol/L Anion Gap (3-11) BUN (7-18) mg/dl Creatinine (0.6-1.2) mg/dl Est Cr Clr Drug Dosing ml/min Est GFR ( Amer) ml/min Est GFR (Non-Af Amer) ml/min BUN/Creatinine Ratio (10-20) Glucose (70-99) mg/dl Osmolality 284 (280-300) mOsm/kg Calcium (8.5-10.1) mg/dl Cortisol AM Sample Pending PG Care Time/CCT Total # of Minutes Spent Total Time Spent with Patient: Total time spent is greater than 50% in coordination of care (as documented) at patient's floor/unit and/or counseling patient: Coding Level of Care Code 13518 Subseq Hosp Care Lvl 2 Diagnoses Pubic bone fracture S32.591A Encounter type: initial encounter Fracture type: closed Laterality: right Sublocation of pubis: other portion of pubis Chronic anticoagulation Z79.01 Dextrocardia Q24.0 Dyslipidemia E78.5 Female stress incontinence N39.3 Gastroesophageal reflux disease without esophagitis K21.9 Hypertension, essential I10 Hypothyroidism E03.9 Interstitial lung disease J84.9 Moderate aortic stenosis I35.0 Vitamin D deficiency E55.9 Urge incontinence N39.41 ROMEO (generalized anxiety disorder) F41.1 Benign hypertension with stage 3a chronic kidney disease I12.9; N18.31 Osteopenia M85.80 DVT prophylaxis Z29.9 (1) Pubic bone fracture Encounter type: initial encounter Fracture type: closed Laterality: right Sublocation of pubis: other portion of pubis Qualified Code(s): S32.591A - Other specified fracture of right pubis, initial encounter for closed fracture
[2020-08-16] MEDS: DICLOFENAC SOD 1% GEL 100 GM TUBE EXT SCH ×4 (08:32→21:50)
[2020-08-16] MEDS: FLUTICASONE FUROATE 200MCG 14 PUFFS/INHALER INH SCH (08:32)
[2020-08-16] MEDS: BRINZOLAMIDE/BRIMONIDINE TART 119 DROPS/8 ML BTL OP SCH ×3 (08:32→21:50)
[2020-08-16] MEDS: POLYETHYLENE (MIRALAX) 17 GM PACK PO SCH (08:33)
[2020-08-16] MEDS: ACETAMINOPHEN 500 MG TAB PO PRN ×2 (08:34→22:04)
[2020-08-16] MEDS: oxyCODONE HCL IR 5 MG TAB (IMMEDIATE RELEASE) PO PRN ×2 (08:35→13:45)
[2020-08-16] MEDS: SERTRALINE HCL 50 MG TABLET PO SCH (08:37)
[2020-08-16] MEDS: MONTELUKAST SODIUM 10 MG TABLET PO SCH (08:37)
[2020-08-16] MEDS: PANTOprazole 40 MG TAB PO SCH (08:38)
[2020-08-16] MEDS: GABAPENTIN 300 MG CAP PO SCH (08:38)
[2020-08-16] MEDS: hydrOXYzine HCl 10 MG TAB PO PRN (08:38)
[2020-08-16] MEDS: dilTIAZem HCL 180 MG CAPCR PO SCH (08:39)
[2020-08-16] MEDS: LIDOCAINE 5% 1 PATCH TD SCH (08:39)
[2020-08-16] MEDS: ENOXAPARIN 80 MG/0.8 ML SYR SQ SCH ×2 (08:40→21:53)
[2020-08-16] MEDS: TIMOLOL MALEATE 0.5% OP SOLN 5 ML BTL OP SCH ×2 (08:40→21:52)
[2020-08-16] MEDS: WARFARIN SOD 5 MG TAB PO SCH (17:30)
[2020-08-16] MEDS: LATANOPROST 0.005% OP SOLN 2.5 ML BTL OP SCH (21:51)
[2020-08-16] MEDS: DOCUSATE SODIUM/SENNA 50/8.6MG TAB PO SCH (21:51)
[2020-08-16] MEDS: SIMVASTATIN 20 MG TAB PO SCH (21:52)
[2020-08-16] MEDS: LOSARTAN POTASSIUM 25 MG TAB PO SCH (21:52)
[2020-08-17] MEDS: LEVOTHYROXINE SODIUM 75 MCG TABLET PO SCH (05:16)
[2020-08-17 07:20] LABS: INR 1.2 (0.9-1.1); Prothrombin Time 12.1 Seconds (9.0-12.0)
[2020-08-17] MEDS: FLUTICASONE FUROATE 200MCG 14 PUFFS/INHALER INH SCH (10:03)
[2020-08-17] MEDS: BRINZOLAMIDE/BRIMONIDINE TART 119 DROPS/8 ML BTL OP SCH ×3 (10:03→21:15)
[2020-08-17] MEDS: TIMOLOL MALEATE 0.5% OP SOLN 5 ML BTL OP SCH ×2 (10:05→21:15)
[2020-08-17] MEDS: PANTOprazole 40 MG TAB PO SCH (10:11)
[2020-08-17] MEDS: SERTRALINE HCL 50 MG TABLET PO SCH (10:11)
[2020-08-17] MEDS: GABAPENTIN 300 MG CAP PO SCH (10:11)
[2020-08-17] MEDS: MONTELUKAST SODIUM 10 MG TABLET PO SCH (10:11)
[2020-08-17] MEDS: dilTIAZem HCL 180 MG CAPCR PO SCH (10:11)
[2020-08-17] MEDS: LIDOCAINE 5% 1 PATCH TD SCH (10:13)
[2020-08-17] MEDS: DICLOFENAC SOD 1% GEL 100 GM TUBE EXT SCH ×4 (10:14→21:09)
[2020-08-17] MEDS: ENOXAPARIN 80 MG/0.8 ML SYR SQ SCH ×2 (10:30→21:33)
[2020-08-17] MEDS: POLYETHYLENE (MIRALAX) 17 GM PACK PO SCH (10:30)
[2020-08-17] MEDS: oxyCODONE HCL IR 5 MG TAB (IMMEDIATE RELEASE) PO PRN (10:35)
[2020-08-17] MEDS: BACLOFEN 10 MG TAB PO PRN (10:36)
[2020-08-17] MEDS: ACETAMINOPHEN 500 MG TAB PO PRN (10:36)
--- NOTE | 2020-08-17 15:33 | Hospitalist Progress Note ---
Date of Service August 17, 2020 Assessment & Plan (1) Pubic bone fracture: Osteoporotic fracture that occurred with minimal exertion while gardening approximately 2 weeks ago but pain much worse in the last 4 days Inability to ambulate at this point secondary to severe pain No hematoma noted on imaging despite INR of 9.0 on admission. However Hgb 13.6 - > 11.6, will repeat again with AM labs WBC count elevated but she did try prednisone x 2 tablets (previously had for her hx ILD) but continues trending down without abx, no fever Orthopedics on consult -- non-operative, WBAT, rehab planned for discharge --> She is agreeable for follow up with Adry Abraham and will arrange at discharge --> Vitamin D level in AM Continue Tylenol, Oxycodone as needed. Baclofen given x 1 for migraine -- resolved and controlled. 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 Given 5mg Vit K for INR 9.0 Resumed warfarin 08/15 INR 1.2, continue warfarin 5mg PO daily with lovenox 70mg SQ BID (3) Dextrocardia: with situs inversus Follows with cardiology (4) Dyslipidemia: Continue simvastatin (5) Female stress incontinence: Uses pads and also uses tampons-tampon was noted on CT of the abdomen/pelvis -She was asked to remove this tampon as it has been in since the night prior to admission --> this was removed per patient and she is reliable historian (6) Gastroesophageal reflux disease without esophagitis: No acute issues Continue PPI (7) Hypertension, essential: Blood pressures are elevated in the ER in the 170s systolic Continue home diltiazem which was recently started by cardiology She is no longer taking torsemide and this was removed from the home medication list Continue home losartan BP controlled 133/74 Continue to monitor (8) Hypothyroidism: Check TSH in the morning --> elevated at 11 with normal FT4 0.95 Increasing her home levothyroxine from 50mcg daily to 75mcg daily and rec patient have repeat TFT in 4-6 weeks as outpatient Should help with her constipation as well as other symptoms of fatigue, weight gain, etc (9) Interstitial lung disease: Follows with [facility] pulmonology in [place] Recently completed a 5-month course of prednisone about 1 month ago but did take an extra dose day 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 GUIDANCE COUNSELOR for her hip pain Cough is much improved -- none reported today No hypoxia Continue Singulair, acetylcysteine twice daily, azelastine nasal spray, fexofenadine as needed And inhaled fluticasone (10) Moderate aortic stenosis: Follows with cardiology (11) Vitamin D deficiency: Vitamin D level with AM labs with calcium Has not been taking her vitamin D for the last several months Encouraged adherence and continue upon discharge Follow up ortho clinic as above (12) Urge incontinence: As above Uses pads and tampons for urinary incontinence-asked her to remove her tampon that is currently in place which she reports has been done Hold home vaginal estrogen cream while inpatient (13) ROMEO (generalized anxiety disorder): No acute issues Continue home sertraline, hydroxyzine as needed (14) Benign hypertension with stage 3a chronic kidney disease: Renal function stable -Avoid nephrotoxins -renally dose meds when appropriate -follow BMP (15) Osteopenia: Has not been taking home Fosamax or vitamin D as above Consider Prolia or Forteo as an outpatient given fracture (16) DVT prophylaxis: INR 9.0 on admission, takes Coumadin --> vit K reversal as above Lovenox, Coumadin and daily INRs Patient reports her daughter So would be her healthcare power of tax staff accountant Granddaughter Renee to be updated this afternoon after she is done at [facility]. Patient is medically stable for discharge pending placement decision Admission and Anticipated Discharge Date Admission Date: August 13, 2020 Subjective Patient seen this morning. No acute concerns or questions. No fever, chills, chest pain, shortness of breath, abdominal pain, nausea or vomiting. Eating well. Having bowel movements. Review of Systems Review of Systems: All systems reviewed & are unremarkable except as noted in HPI & below Physical Exam Constitutional: WD/WN, vitals as above Respiratory: normal respiratory effort, lungs clear to auscultation Cardiovascular: Rate/Rhythm: regular rate and regular rhythm Heart Sounds: + murmur (4/6 holosystolic LUSB and right apex) Extremities: no calf tenderness and no edema Chest (Breasts): Chest: normal inspection of chest Gastrointestinal (Abdomen): normal bowel sounds, soft, nontender, no hepatosplenomegaly Musculoskeletal: Extremities: extremities normal to inspection; no cyanosis and no clubbing Skin: no rashes, warm and dry Neurologic: moves all extremities and awake; no focal motor deficits Psychiatric: A+Ox3, euthymic affect Lymphatic: no lymphedema Results & Data Results & Data ([facility]) Vital Signs (Past 12 Hours) Vital Signs Temp Pulse Resp BP Pulse Ox 08/17/20 07:30 36.7 C 62 18 117/62 93 PG Care Time/CCT Total # of Minutes Spent Total Time Spent with Patient: Total time spent is greater than 50% in coordination of care (as documented) at patient's floor/unit and/or counseling patient: Coding Level of Care Code 19492 Subseq Hosp Care Lvl 1 Diagnoses Pubic bone fracture S32.591A Encounter type: initial encounter Fracture type: closed Laterality: right Sublocation of pubis: other portion of pubis Chronic anticoagulation Z79.01 Dextrocardia Q24.0 Dyslipidemia E78.5 Female stress incontinence N39.3 Gastroesophageal reflux disease without esophagitis K21.9 Hypertension, essential I10 Hypothyroidism E03.9 Interstitial lung disease J84.9 Moderate aortic stenosis I35.0 Vitamin D deficiency E55.9 Urge incontinence N39.41 ROMEO (generalized anxiety disorder) F41.1 Benign hypertension with stage 3a chronic kidney disease I12.9; N18.31 Osteopenia M85.80 DVT prophylaxis Z29.9 (1) Pubic bone fracture Encounter type: initial encounter Fracture type: closed Laterality: right Sublocation of pubis: other portion of pubis Qualified Code(s): S32.591A - Other specified fracture of right pubis, initial encounter for closed fracture
[2020-08-17] MEDS: WARFARIN SOD 5 MG TAB PO SCH (16:27)
[2020-08-17] MEDS: SIMVASTATIN 20 MG TAB PO SCH (21:13)
[2020-08-17] MEDS: DOCUSATE SODIUM/SENNA 50/8.6MG TAB PO SCH (21:13)
[2020-08-17] MEDS: LATANOPROST 0.005% OP SOLN 2.5 ML BTL OP SCH (21:15)
[2020-08-17] MEDS: LOSARTAN POTASSIUM 25 MG TAB PO SCH (21:16)
[2020-08-18] MEDS: LEVOTHYROXINE SODIUM 75 MCG TABLET PO SCH (05:39)
[2020-08-18 07:29] LABS: Basophils # (auto) 0.04 K/uL (0-0.2); Basophils % (auto) 0.5 %; Eosinophils # (auto) 0.46 K/uL (0-0.5); Eosinophils % (auto) 5.6 %; Hematocrit (blood only) 33.2 % (37-47); Hemoglobin 11.3 g/dL (12.0-16.0); Immature Granulocytes % (auto) 1.2 %; Lymphocytes # (auto) 2.29 K/uL (1.2-3.4); Mean Corpuscular Volume 88.1 fL (80-100); Mean Platelet Volume 8.7 fL (7.4-10.4); Monocytes # (auto) 1.26 K/uL (0.11-0.59); Monocytes % (auto) 15.4 %; Neutrophils # (auto) 4.04 K/uL (1.4-6.5); Neutrophils % (auto) 49.3 %; Platelet Count 472 K/uL (130-400); RDW Coefficient of Variation 13.2 % (11.5-14.5); RDW Standard Deviation 42.7 fL (36.4-46.3); Red Blood Count 3.77 M/uL (4.2-5.4); White Blood Count 8.19 K/uL (4.8-10.8)
[2020-08-18 07:37] LABS: INR 1.7 (0.9-1.1); Prothrombin Time 16.3 Seconds (9.0-12.0)
[2020-08-18] MEDS: DICLOFENAC SOD 1% GEL 100 GM TUBE EXT SCH ×4 (07:52→20:22)
[2020-08-18] MEDS: LIDOCAINE 5% 1 PATCH TD SCH (07:54)
[2020-08-18 08:03] LABS: BUN Creatinine Ratio 23.8 (10-20); Calcium 8.9 mg/dl (8.5-10.1); Creatinine Clr Calc Pharmacy 41.6 ml/min; Est GFR (African American) 66.1 ml/min
[2020-08-18] MEDS: FLUTICASONE FUROATE 200MCG 14 PUFFS/INHALER INH SCH (08:49)
[2020-08-18] MEDS: GABAPENTIN 300 MG CAP PO SCH (08:50)
[2020-08-18] MEDS: MONTELUKAST SODIUM 10 MG TABLET PO SCH (08:51)
[2020-08-18] MEDS: PANTOprazole 40 MG TAB PO SCH (08:51)
[2020-08-18] MEDS: SERTRALINE HCL 50 MG TABLET PO SCH (08:51)
[2020-08-18] MEDS: POLYETHYLENE (MIRALAX) 17 GM PACK PO SCH (08:52)
[2020-08-18] MEDS: oxyCODONE HCL IR 5 MG TAB (IMMEDIATE RELEASE) PO PRN (08:52)
[2020-08-18] MEDS: BRINZOLAMIDE/BRIMONIDINE TART 119 DROPS/8 ML BTL OP SCH ×3 (08:53→20:23)
[2020-08-18] MEDS: TIMOLOL MALEATE 0.5% OP SOLN 5 ML BTL OP SCH ×2 (08:54→20:23)
[2020-08-18] MEDS: dilTIAZem HCL 180 MG CAPCR PO SCH (08:56)
[2020-08-18] MEDS: ENOXAPARIN 80 MG/0.8 ML SYR SQ SCH ×2 (11:14→20:24)
--- NOTE | 2020-08-18 13:54 | Hospitalist Progress Note ---
Date of Service August 18, 2020 Assessment & Plan (1) Pubic bone fracture: Osteoporotic fracture that occurred with minimal exertion while gardening approximately 2 weeks ago but pain much worse in the last 4 days Inability to ambulate at this point secondary to severe pain No hematoma noted on imaging despite INR of 9.0 on admission. However Hgb 13.6 - > 11.6, will repeat again with AM labs WBC count elevated but she did try prednisone x 2 tablets (previously had for her hx ILD) but continues trending down without abx, no fever Orthopedics on consult -- non-operative, WBAT, rehab planned for discharge --> She is agreeable for follow up with Adry Abraham and will arrange at discharge --> Vitamin D level low normal, starting supplementation Continue Tylenol, Oxycodone as needed. Baclofen given x 1 for migraine -- resolved and controlled. 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 CM following and [place] and looking into back-up options as well (2) Chronic anticoagulation: Takes this for history of recurrent DVT Given 5mg Vit K for INR 9.0 Resumed warfarin 08/15, Usually takes 5mg MWF, 2.5mg all other times. Unknown cause of elevation on admission. INR 1.7, continue warfarin 2.5mg PO today with lovenox 70mg SQ BID (3) Dextrocardia: with situs inversus Follows with cardiology (4) Dyslipidemia: Continue simvastatin (5) Female stress incontinence: Uses pads and also uses tampons-tampon was noted on CT of the abdomen/pelvis -She was asked to remove this tampon as it has been in since the night prior to admission --> this was removed per patient and she is reliable historian (6) Gastroesophageal reflux disease without esophagitis: No acute issues Continue PPI (7) Hypertension, essential: Blood pressures are elevated in the ER in the 170s systolic Continue home diltiazem which was recently started by cardiology She is no longer taking torsemide and this was removed from the home medication list Continue home losartan BP controlled Continue to monitor (8) Hypothyroidism: TSH --> elevated at 11 with normal FT4 0.95 Increasing her home levothyroxine from 50mcg daily to 75mcg daily and rec patient have repeat TFT in 4-6 weeks as outpatient Should help with her constipation as well as other symptoms of fatigue, weight gain, etc (9) Interstitial lung disease: Follows with [facility] pulmonology in [place] Recently completed a 5-month course of prednisone about 1 month ago but did take an extra dose 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 Has not been taking her vitamin D for the last several months Encouraged adherence and continue upon discharge Follow up ortho clinic as above (12) Urge incontinence: As above Uses pads and tampons for urinary incontinence-asked her to remove her tampon that is currently in place which she reports has been done Hold home vaginal estrogen cream while inpatient (13) ROMEO (generalized anxiety disorder): No acute issues Continue home sertraline, hydroxyzine as needed (14) Benign hypertension with stage 3a chronic kidney disease: Renal function stable -Avoid nephrotoxins -renally dose meds when appropriate -follow BMP (15) Osteopenia: Has not been taking home Fosamax or vitamin D as above Consider Prolia or Forteo as an outpatient given fracture (16) DVT prophylaxis: INR 9.0 on admission, takes Coumadin --> vit K reversal as above Lovenox, Coumadin and daily INRs Patient reports her daughter So would be her healthcare power of track superintendent Patient is medically stable for discharge pending placement decision Admission and Anticipated Discharge Date Admission Date: August 13, 2020 Subjective No acute events overnight. No acute concerns or questions. No fever, chills, chest pain, shortness of breath, abdominal pain, nausea or vomiting. Eating well. Having bowel movements. Review of Systems Review of Systems: All systems reviewed & are unremarkable except as noted in HPI & below Physical Exam Constitutional: well developed Respiratory: normal respiratory effort Chest (Breasts): Chest: normal inspection of chest Musculoskeletal: Extremities: extremities normal to inspection; no cyanosis and no clubbing Skin: no rashes, warm and dry Neurologic: moves all extremities and awake; not confused Psychiatric: Orientation: alert and oriented x 3 Results & Data Results & Data ([facility]) Vital Signs (Past 12 Hours) Vital Signs Temp Pulse Resp BP Pulse Ox 08/18/20 08:56 67 134/72 08/18/20 07:21 36.9 C 57 L 16 144/85 H 94 PG Care Time/CCT Total # of Minutes Spent Total Time Spent with Patient: Total time spent is greater than 50% in coordination of care (as documented) at patient's floor/unit and/or counseling patient: Coding Level of Care Code 62114 Subseq Hosp Care Lvl 1 Diagnoses Pubic bone fracture S32.591A Encounter type: initial encounter Fracture type: closed Laterality: right Sublocation of pubis: other portion of pubis Chronic anticoagulation Z79.01 Dextrocardia Q24.0 Dyslipidemia E78.5 Female stress incontinence N39.3 Gastroesophageal reflux disease without esophagitis K21.9 Hypertension, essential I10 Hypothyroidism E03.9 Interstitial lung disease J84.9 Moderate aortic stenosis I35.0 Vitamin D deficiency E55.9 Urge incontinence N39.41 ROMEO (generalized anxiety disorder) F41.1 Benign hypertension with stage 3a chronic kidney disease I12.9; N18.31 Osteopenia M85.80 DVT prophylaxis Z29.9 (1) Pubic bone fracture Encounter type: initial encounter Fracture type: closed Laterality: right Sublocation of pubis: other portion of pubis Qualified Code(s): S32.591A - Other specified fracture of right pubis, initial encounter for closed fracture
[2020-08-18] MEDS: WARFARIN SOD 2.5 MG TAB PO SCH (17:02)
[2020-08-18] MEDS: LATANOPROST 0.005% OP SOLN 2.5 ML BTL OP SCH (20:22)
[2020-08-18] MEDS: SIMVASTATIN 20 MG TAB PO SCH (20:24)
[2020-08-18] MEDS: LOSARTAN POTASSIUM 25 MG TAB PO SCH (20:24)
[2020-08-18] MEDS: DOCUSATE SODIUM/SENNA 50/8.6MG TAB PO SCH (20:24)
[2020-08-18] MEDS: ACETAMINOPHEN 500 MG TAB PO PRN (20:28)
[2020-08-19] MEDS: SUMAtriptan succinate 50 MG TAB PO PRN (02:58)
[2020-08-19] MEDS: LEVOTHYROXINE SODIUM 75 MCG TABLET PO SCH (05:44)
[2020-08-19] MEDS: DICLOFENAC SOD 1% GEL 100 GM TUBE EXT SCH ×4 (08:59→20:32)
[2020-08-19] MEDS: BRINZOLAMIDE/BRIMONIDINE TART 119 DROPS/8 ML BTL OP SCH ×3 (08:59→20:30)
[2020-08-19] MEDS: FLUTICASONE FUROATE 200MCG 14 PUFFS/INHALER INH SCH (08:59)
[2020-08-19] MEDS: GABAPENTIN 300 MG CAP PO SCH (08:59)
[2020-08-19] MEDS: LIDOCAINE 5% 1 PATCH TD SCH (08:59)
[2020-08-19] MEDS: oxyCODONE HCL IR 5 MG TAB (IMMEDIATE RELEASE) PO PRN (09:00)
[2020-08-19] MEDS: SERTRALINE HCL 50 MG TABLET PO SCH (09:01)
[2020-08-19] MEDS: MONTELUKAST SODIUM 10 MG TABLET PO SCH (09:01)
[2020-08-19] MEDS: PANTOprazole 40 MG TAB PO SCH (09:01)
[2020-08-19] MEDS: TIMOLOL MALEATE 0.5% OP SOLN 5 ML BTL OP SCH ×2 (09:02→20:30)
[2020-08-19] MEDS: POLYETHYLENE (MIRALAX) 17 GM PACK PO SCH (09:02)
[2020-08-19] MEDS: dilTIAZem HCL 180 MG CAPCR PO SCH (09:05)
[2020-08-19 10:09] LABS: INR 1.7 (0.9-1.1); Prothrombin Time 16.7 Seconds (9.0-12.0)
[2020-08-19 10:30] LABS: BUN Creatinine Ratio 16.5 (10-20); Calcium 9.1 mg/dl (8.5-10.1); Est GFR (African American) 59.3 ml/min; Est GFR (Non-African American) 51.2 ml/min; Potassium 4.1 mmol/L (3.5-5.1)
[2020-08-19] MEDS: CHOLECALCIFEROL 1,000 UNITS 25 MCG TAB PO SCH (10:35)
[2020-08-19] MEDS: ENOXAPARIN 80 MG/0.8 ML SYR SQ SCH (10:35)
--- NOTE | 2020-08-19 15:00 | Hospitalist Progress Note ---
Date of Service August 19, 2020 Assessment & Plan (1) Pubic bone fracture: Osteoporotic fracture that occurred with minimal exertion while gardening approximately 2 weeks ago but pain much worse in the last 4 days Inability to ambulate at this point secondary to severe pain No hematoma noted on imaging despite INR of 9.0 on admission. However Hgb 13.6 - > 11.6, will repeat again with AM labs WBC count elevated but she did try prednisone x 2 tablets (previously had for her hx ILD) but continues trending down without abx, no fever Orthopedics on consult -- non-operative, WBAT, rehab planned for discharge --> She is agreeable for follow up with Adry Abraham and will arrange at discharge --> Vitamin D level low normal, starting supplementation Continue Tylenol, Oxycodone as needed. Baclofen given x 1 for migraine -- resolved and controlled. 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 CM following and [place] and looking into back-up options as well (2) Chronic anticoagulation: Takes this for history of recurrent DVT Given 5mg Vit K for INR 9.0 Resumed warfarin 08/15, Usually takes 2.5mg MWF, 5mg all other times. Unknown cause of elevation on admission. INR 1.7, continue warfarin 2.5mg PO today, patient refusing further lovenox which seems reasonable given INR now 1.7 (3) Dextrocardia: with situs inversus Follows with cardiology (4) Dyslipidemia: Continue simvastatin (5) Female stress incontinence: Uses pads and also uses tampons-tampon was noted on CT of the abdomen/pelvis -She was asked to remove this tampon as it has been in since the night prior to admission --> this was removed per patient and she is reliable historian (6) Gastroesophageal reflux disease without esophagitis: No acute issues Continue PPI (7) Hypertension, essential: Blood pressures are elevated in the ER in the 170s systolic Continue home diltiazem which was recently started by cardiology She is no longer taking torsemide and this was removed from the home medication list Continue home losartan BP controlled Continue to monitor (8) Hypothyroidism: TSH --> elevated at 11 with normal FT4 0.95 Increasing her home levothyroxine from 50mcg daily to 75mcg daily and rec patient have repeat TFT in 4-6 weeks as outpatient Should help with her constipation as well as other symptoms of fatigue, weight gain, etc (9) Interstitial lung disease: Follows with [facility] pulmonology in [place] Recently completed a 5-month course of prednisone about 1 month ago but did take an extra dose day 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 Has not been taking her vitamin D for the last several months Encouraged adherence and continue upon discharge Follow up ortho clinic as above (12) Urge incontinence: As above Uses pads and tampons for urinary incontinence-asked her to remove her tampon that is currently in place which she reports has been done Hold home vaginal estrogen cream while inpatient (13) ROMEO (generalized anxiety disorder): No acute issues Continue home sertraline, hydroxyzine as needed (14) Benign hypertension with stage 3a chronic kidney disease: Renal function stable -Avoid nephrotoxins -renally dose meds when appropriate -follow BMP (15) Osteopenia: Has not been taking home Fosamax or vitamin D as above Consider Prolia or Forteo as an outpatient given fracture (16) DVT prophylaxis: INR 9.0 on admission, takes Coumadin --> vit K reversal as above Lovenox, Coumadin and daily INRs Patient reports her daughter So would be her healthcare power of associate attorney Patient is medically stable for discharge pending placement acceptance Admission and Anticipated Discharge Date Admission Date: August 13, 2020 Subjective No acute events overnight. No acute concerns or questions. No fever, chills, chest pain, shortness of breath, abdominal pain, leg swelling, nausea or vomiting. Eating well. Having bowel movements. Review of Systems Review of Systems: All systems reviewed & are unremarkable except as noted in HPI & below Physical Exam Constitutional: well developed Respiratory: normal respiratory effort Cardiovascular: Extremities: no edema Chest (Breasts): Chest: normal inspection of chest Gastrointestinal (Abdomen): normal bowel sounds, soft, nontender, no hepatosplenomegaly Skin: no rashes, warm and dry Neurologic: moves all extremities and awake; not confused Psychiatric: Orientation: alert and oriented x 3 Lymphatic: no lymphedema Results & Data Results & Data ([facility]) Vital Signs (Past 12 Hours) Vital Signs Temp Pulse Pulse Resp BP BP Pulse Ox 08/19/20 09:00 69 136/77 08/19/20 07:11 36.5 C 64 16 150/66 H 95 PG Care Time/CCT Total # of Minutes Spent Total Time Spent with Patient: Total time spent is greater than 50% in coordination of care (as documented) at patient's floor/unit and/or counseling patient: Coding Level of Care Code 26973 Subseq Hosp Care Lvl 1 Diagnoses Pubic bone fracture S32.591A Encounter type: initial encounter Fracture type: closed Laterality: right Sublocation of pubis: other portion of pubis Chronic anticoagulation Z79.01 Dextrocardia Q24.0 Dyslipidemia E78.5 Female stress incontinence N39.3 Gastroesophageal reflux disease without esophagitis K21.9 Hypertension, essential I10 Hypothyroidism E03.9 Interstitial lung disease J84.9 Moderate aortic stenosis I35.0 Vitamin D deficiency E55.9 Urge incontinence N39.41 ROMEO (generalized anxiety disorder) F41.1 Benign hypertension with stage 3a chronic kidney disease I12.9; N18.31 Osteopenia M85.80 DVT prophylaxis Z29.9 (1) Pubic bone fracture Encounter type: initial encounter Fracture type: closed Laterality: right Sublocation of pubis: other portion of pubis Qualified Code(s): S32.591A - Other specified fracture of right pubis, initial encounter for closed fracture
[2020-08-19] MEDS: WARFARIN SOD 2.5 MG TAB PO SCH (16:25)
[2020-08-19] MEDS: ACETAMINOPHEN 500 MG TAB PO PRN (19:33)
[2020-08-19] MEDS ORDERED: MELATONIN 3 MG TAB PO PRN (20:14)
[2020-08-19] MEDS: LATANOPROST 0.005% OP SOLN 2.5 ML BTL OP SCH (20:29)
[2020-08-19] MEDS: DOCUSATE SODIUM/SENNA 50/8.6MG TAB PO SCH (20:33)
[2020-08-19] MEDS: SIMVASTATIN 20 MG TAB PO SCH (20:34)
[2020-08-19] MEDS: LOSARTAN POTASSIUM 25 MG TAB PO SCH (20:44)
[2020-08-20] MEDS: SUMAtriptan succinate 50 MG TAB PO PRN (02:49)
[2020-08-20] MEDS: LEVOTHYROXINE SODIUM 75 MCG TABLET PO SCH (05:25)
[2020-08-20 06:07] LABS: INR 1.6 (0.9-1.1); Prothrombin Time 15.9 Seconds (9.0-12.0)
[2020-08-20 06:27] LABS: BUN Creatinine Ratio 18.3 (10-20); Calcium 9.2 mg/dl (8.5-10.1); Est GFR (African American) 57.3 ml/min; Est GFR (Non-African American) 49.5 ml/min; Potassium 4.2 mmol/L (3.5-5.1)
[2020-08-20] MEDS: BRINZOLAMIDE/BRIMONIDINE TART 119 DROPS/8 ML BTL OP SCH (08:51)
[2020-08-20] MEDS: PANTOprazole 40 MG TAB PO SCH (08:52)
[2020-08-20] MEDS: dilTIAZem HCL 180 MG CAPCR PO SCH (08:52)
[2020-08-20] MEDS: MONTELUKAST SODIUM 10 MG TABLET PO SCH (08:52)
[2020-08-20] MEDS: GABAPENTIN 300 MG CAP PO SCH (08:52)
[2020-08-20] MEDS: TIMOLOL MALEATE 0.5% OP SOLN 5 ML BTL OP SCH (08:52)
[2020-08-20] MEDS: POLYETHYLENE (MIRALAX) 17 GM PACK PO SCH (08:53)
[2020-08-20] MEDS: DICLOFENAC SOD 1% GEL 100 GM TUBE EXT SCH (08:53)
[2020-08-20] MEDS: SERTRALINE HCL 50 MG TABLET PO SCH (08:53)
[2020-08-20] MEDS: LIDOCAINE 5% 1 PATCH TD SCH (08:54)
[2020-08-20] MEDS: CHOLECALCIFEROL 1,000 UNITS 25 MCG TAB PO SCH (08:54)
[2020-08-20] MEDS: FLUTICASONE FUROATE 200MCG 14 PUFFS/INHALER INH SCH (08:54)
[2020-08-20] MEDS: oxyCODONE HCL IR 5 MG TAB (IMMEDIATE RELEASE) PO PRN (09:03)
--- NOTE | 2020-08-20 09:52 | Discharge Summary ---
Date of Service August 20, 2020 Admission HPI Per Admitting Provider This patient is a 79-year-old female with a history of suspected interstitial lung disease with cough variant asthma and simple chronic bronchitis recently on 4 to 5 months of prednisone therapy, osteoporosis, recurrent DVT on Coumadin, HTN, CKD stage III, dextrocardia, situs inversus abdominalis, generalized anxiety disorder, GERD, migraine headaches, moderate aortic valve stenosis, mild aortic insufficiency, mild mitral regurgitation, heart failure with preserved ejection fraction, bladder incontinence, and hyperlipidemia who presents to the ER with 4 days of significant worsening of pain in the right hip that is been ongoing for approximately 2 to 3 weeks. Pain is also in the upper thigh and right lower quadrant of the abdomen. She reports that several weeks ago she was doing some light gardening while carrying a water bucket and by the next day started experiencing pain in this area which was mild until it worsened the last 4 days. She denies any trauma or falls. Denies any saddle anesthesia or pain down her legs, no numbness in the lower extremities or weakness. She does have worsening of pain with certain movements of the right lower extremity. Tylenol and heat have not been helping with the pain. She had an outpatient x-ray of the right hip which was reportedly normal last week. She reports the pain was so bad that she was unable to get out of bed all last night and finally called her children for help this morning. She was brought in by EMS. In the ER, she was found to have a right medial pubic bone acute to subacute nondisplaced fracture which extends to the pubic symphysis. No fracture or dislocation right hip. She was also noted to have an INR of 9.0. A tampon was also noted in the vagina on CT imaging. She was given p.o. vitamin K 5 mg x 1 in the ER, as well as 2 doses of IV fentanyl. She will be admitted for pelvic fracture for pain control, evaluation for rehab placement, as well as treatment of her supratherapeutic INR. Admission Exam Per Admitting Provider Constitutional: WD/WN, vitals as above Eyes: PERRL, conjunctivae normal, anicteric sclerae ENMT: external ear and nose normal, oropharynx normal Neck: trachea midline, no thyromegaly Respiratory: normal respiratory effort Auscultation: + wheezes (Very faint upper respiratory tract expiratory wheezes); no rales and no rhonchi Cardiovascular: Rate/Rhythm: regular rate and regular rhythm Heart Sounds: + murmur (3/6 systolic murmur at the left upper sternal border) Extremities: no calf tenderness and no edema Heart sounds on the right side of the chest Chest (Breasts): Chest: normal inspection of chest Gastrointestinal (Abdomen): normal bowel sounds, soft, nontender, no hepatosplenomegaly Musculoskeletal: Extremities: extremities normal to inspection; no cyanosis and no clubbing Positive pain with active range of motion of the right hip and with logroll of the right lower extremity Sensation intact to bilateral lower extremities, motor intact throughout bilateral lower extremities but diminished with hip flexion due to pain Skin: no rashes, warm and dry Neurologic: moves all extremities and awake; no focal motor deficits Psychiatric: A+Ox3, euthymic affect Lymphatic: no lymphedema Principal Diagnosis Pubic bone fracture with extension into symphysis pubis Discharge Exam Constitutional WD/WN, vitals as above well developed Eyes PERRL, conjunctivae normal, anicteric sclerae ENMT external ear and nose normal, oropharynx normal Neck trachea midline, no thyromegaly Respiratory normal respiratory effort, lungs clear to auscultation normal respiratory effort Auscultation: no rales, no rhonchi and no wheezes Cardiovascular Rate/Rhythm: regular rate and regular rhythm Heart Sounds: + murmur (4/6 holosystolic LUSB and right apex) Extremities: no edema Chest (Breasts) Chest: normal inspection of chest Gastrointestinal (Abdomen) normal bowel sounds, soft, nontender, no hepatosplenomegaly Musculoskeletal Extremities: extremities normal to inspection; no cyanosis and no clubbing Skin no rashes, warm and dry Neurologic moves all extremities and awake; not confused Psychiatric A+Ox3, euthymic affect Orientation: alert and oriented x 3 Lymphatic no lymphedema Discharge Data Allergies Allergy/AdvReac Type Severity Reaction Status Date / Time Penicillins Allergy Verified 09/02/20 13:03 prednisone Allergy Verified 09/02/20 13:03 Quinolones Allergy Verified 09/02/20 13:03 Consultations 08/13/20 15:54 ED Decision to Admit Stat 08/13/20 16:31 Consult Orthopedic Surgery Routine Ordered Studies 08/13/20 12:40 CT abd pelvis IV con only Stat IMPRESSION: 1. Situs inversus 2. No evidence of bowel obstruction. No evidence of free air 3. No evidence of acute diverticulitis. No evidence of acute appendicitis 4. Vaginal tampon 5. Nondisplaced fracture of the right symphysis pubis CT hip RT wo con Stat IMPRESSION: 1. Acute to subacute nondisplaced fracture of the medial right pubic bone which extends to the symphysis pubis. 2. No acute fracture or dislocation within the right hip. Hospital Course (1) Pubic bone fracture: Sahra Garcia is a 79 year old female admitted to [facility] from August 13-2020 due to right hip pain. She was subsequently diagnosed with a pubic bone fracture with extension into symphysis pubis as seen on CT. She was reviewed by orthopedics and recommended no surgery and weight bearing as tolerated. Given her prior osteoporosis diagnosis recommend follow up with her PCP or referral to SUSAN Reddy ([facility] psychologist) for further treatment of this. She has not been taking the alendronate prescribed and may not be the best option given your gastroesophageal reflux. Started on vitamin D 1000 units. She was discharged to [facility] for ongoing physical rehabilitation. Acetaminophen prescribed scheduled and oxycodone as needed for pain. She will follow up with orthopedics as below. Of note her INR was elevated on admission. Unclear cause for this but no bleeding was noted as a result. Hemoglobin stable 11.3 on discharge. INR was reversed on admission with vitamin K therefore can take some time to reach a therapeutic level again. Recommended resuming her usual regimen with warfarin 2.5mg Monday, Monday and Monday and 5mg all other days (including today). INR 1.6 on day of discharge. TSH was also noted to be raised at 11 with free T4 (thyroid hormone) on lower limits of normal. Therefore levothyroxine has been increased from 50 -> 75 mcg PO daily. Recommend rechecking this in 4-6 weeks. (2) Chronic anticoagulation: (3) Dextrocardia: (4) Dyslipidemia: (5) Female stress incontinence: (6) Gastroesophageal reflux disease without esophagitis: (7) Hypertension, essential: (8) Hypothyroidism: (9) Interstitial lung disease: (10) Moderate aortic stenosis: (11) Vitamin D deficiency: (12) Urge incontinence: (13) ROMEO (generalized anxiety disorder): (14) Benign hypertension with stage 3a chronic kidney disease: (15) Osteopenia: (16) DVT prophylaxis: Total Time Total Time Spent Total Time Spent (In Minutes): 50 Discharge Plan Discharge Items Patient Disposition: Transfer Detention Fac Reason For Visit: PUBIC BONE FRACTURE, SUPRATHERAPEUTIC Discharge Diagnosis: Pubic bone fracture with extension into symphysis pubis Activity: Resume your previous activity Non-emergency contact: Surgeon Call non-emergency contact if: you have any medication questions Follow-up/Referrals: Evita Medina-DO Wen [Primary Care Provider] - Yoav Aguirre DO [Surgeon] - (2 week follow up) Diet: Heart Healthy Addtl Attending Provider Instructions: You were admitted to [facility] from August 13-2020 due to right hip pain. You were subsequently diagnose with a pubic bone fracture with extension into symphysis pubis as seen on CT. You were reviewed by orthopedics and recommended no surgery and weight bearing as tolerated. Given your prior osteoporosis diagnosis recommend follow up with your primary care physician or referral to SUSAN Reddy ([facility] psychologist) for further treatment of this as I understand you have not been taking the alendronate precribed and may not be the best option given your gastroesophageal reflux. Please start vitamin D 1000 units as prescribed. We are discharging you to [facility] for ongoing physical rehabilitation for this injury. Use acetaminophen regularly and oxycodone for pain as needed. Please follow up with orthopedics as above. Of note your INR was elevated on admission. Unclear cause for this but no bleeding was noted as a results. Hemoglobin stable 11.3 on discharge. It was reversed on admission with vitamin K therefore can take some time to reach a therapeutic level again. Recommend resuming your usual regimen with warfarin 2.5mg Monday, Monday and Monday and 5mg all other days (including today). INR 1.6 on day of discharge. Your thyroid stimulating hormone was also noted to be raised at 11 with free T4 (thyroid hormone) on lower limits of normal. Therefore levothyroxine has been increased from 50 -> 75 mcg PO daily. Recommend rechecking this in 4-6 weeks. Kind regards, Dr Alex Troy Pending Studies at Discharge: No Stand-Alone Forms: My [facility], Smoking Cessation Skilled Items Patient informed of condition?: Yes DNR: No Discharge Level of Care: Skilled Communicable Disease: No Discharge Prognosis: Stable Lines: None Urinary Catheter: No Medications and DC Order Prescriptions: New cholecalciferol (vitamin D3) 25 mcg (1,000 unit) Capsule 1,000 unit PO QAM Qty: 30 RF: 0 levothyroxine 75 mcg tablet 75 mcg PO DAILY Qty: 30 RF: 0 Continued simvastatin 20 mg tablet 20 mg PO QPM RF: 0 hydroxyzine HCl 10 mg tablet 10 mg PO QPM PRN (Reason: Anxiety) RF: 0 acetylcysteine 200 mg/mL (20 %) solution 3 ml inhalation BID RF: 0 latanoprost 0.005 % drops 1 drp ophthalmic (eye) QPM RF: 0 timolol 0.5 % drops 1 drp ophthalmic (eye) BID RF: 0 gabapentin 300 mg capsule 300 mg PO DAILY RF: 0 azelastine 137 mcg (0.1 %) aerosol,spray 1 spray intranasal BID RF: 0 albuterol sulfate 2.5 mg /3 mL (0.083 %) solution for nebulization 2.5 mg inhalation Q4H PRN (Reason: sob/wheezing) RF: 0 Flovent HFA 220 mcg/actuation HFA aerosol inhaler 2 puff inhalation BID RF: 0 omeprazole 40 mg capsule,delayed release(DR/EC) 40 mg PO DAILY RF: 0 Simbrinza 1-0.2 % drops,suspension 1 drp ophthalmic (eye) TID RF: 0 fexofenadine [Kristina Allergy] 180 mg tablet 180 mg PO DAILY PRN (Reason: seasonal allergies) RF: 0 polyethylene glycol 3350 17 gram powder in packet 255 g PO DAILY PRN (Reason: Constipation) RF: 0 fluorouracil [Efudex] 5 % cream 1 applic topical BID PRN (Reason: Unknown) RF: 0 montelukast [Singulair] 10 mg tablet 10 mg PO DAILY RF: 0 sennosides-docusate sodium [Senna-S] 8.6-50 mg tablet 1 tab-cap PO QPM RF: 0 warfarin 5 mg tablet 5 mg PO PM RF: 0 diltiazem HCl 180 mg capsule,extended release 24hr 180 mg PO DAILY Qty: 90 RF: 3 acetaminophen [Tylenol Extra Strength] 500 mg Tablet 100 mg PO Q6H PRN (Reason: Pain) RF: 0 Discontinued alendronate [Fosamax] 70 mg tablet 70 mg PO WK RF: 0 levothyroxine 50 mcg tablet 50 mcg PO DAILY RF: 0 No Action warfarin 3 mg tablet 3 mg PO .COMPLEX Qty: 90 RF: 3 Nurtec ODT 75 mg tablet,disintegrating 75 mg PO .q daily PRN (Reason: migraine headache) Qty: 30 RF: 0 hydrocortisone 1 % cream 1 applic topical BID PRN (Reason: itching) Qty: 28.4 RF: 0 triamcinolone acetonide 0.1 % cream 1 applic topical BID Qty: 30 RF: 0 tramadol 50 mg tablet 50 mg PO BID PRN (Reason: pain) Qty: 60 RF: 0 Discharge Orders: Discharge Order (Routine); Ordered 08/20/20 Ordered By: Alex Zayas/Other Patient Handouts: What to Know When TakingWarfarin Admission Data Admit Date/Time: 08/13/20 16:31 Attending Provider: Alex Troy Admit Provider: Corrine Oliva Primary Care Provider: Evita Medina Other Providers: Corrine Oliva ; Oj Huertas ; Gray Arechiga Other Interventions: Discharge Summary Assessment (RN) Last Done: 08/20/20 09:09 Coding Level of Care Code D/C DAY MANAGEMENT >30 MINS Diagnoses Pubic bone fracture S32.591A Encounter type: initial encounter Fracture type: closed Laterality: right Sublocation of pubis: other portion of pubis Chronic anticoagulation Z79.01 Dextrocardia Q24.0 Dyslipidemia E78.5 Female stress incontinence N39.3 Gastroesophageal reflux disease without esophagitis K21.9 Hypertension, essential I10 Hypothyroidism E03.9 Interstitial lung disease J84.9 Moderate aortic stenosis I35.0 Vitamin D deficiency E55.9 Urge incontinence N39.41 ROMEO (generalized anxiety disorder) F41.1 Benign hypertension with stage 3a chronic kidney disease I12.9; N18.31 Osteopenia M85.80 DVT prophylaxis Z29.9
== END 2020-08-20 11:44 | DRG 543 ==
LOC: ED 11:06 → SUATTDRO 16:31 → 3N 16:31
DX: E03.9 Hypothyroidism, unspecified; I50.30 Unspecified diastolic (congestive) heart failure; I08.0 Rheumatic disorders of both mitral and aortic valves; M80.051A Age-related osteoporosis with current pathological fracture, right femur, initial encounter for fracture; Z79.01 Long term (current) use of anticoagulants; R79.1 Abnormal coagulation profile; J45.909 Unspecified asthma, uncomplicated; I13.0 Hypertensive heart and chronic kidney disease with heart failure and stage 1 through stage 4 chronic kidney disease, or unspecified chronic kidney disease; N39.3 Stress incontinence (female) (male); Z79.52 Long term (current) use of systemic steroids; Q89.3 Situs inversus; Y93.H2 Activity, gardening and landscaping; H40.9 Unspecified glaucoma; Z86.718 Personal history of other venous thrombosis and embolism; Z83.3 Family history of diabetes mellitus; X50.3XXA Overexertion from repetitive movements, initial encounter; N18.31 Chronic kidney disease, stage 3a; Y92.017 Garden or yard in single-family (private) house as the place of occurrence of the external cause; E78.5 Hyperlipidemia, unspecified; F41.1 Generalized anxiety disorder; J84.9 Interstitial pulmonary disease, unspecified; E55.9 Vitamin D deficiency, unspecified; Z88.0 Allergy status to penicillin; Z88.8 Allergy status to other drugs, medicaments and biological substances